=== PATIENT | female | born 1935 | race Caucasian/White ===

== ENCOUNTER → 2017-01-12 | Outpatient (CLI) | payer MEDICARE ==
--- NOTE | 2017-01-13 10:50 | MM ---
Reason for exam: screening (asymptomatic). Last mammogram was performed 1 year and 8 months ago. History: Patient is postmenopausal. Benign excisional biopsy of the right breast, 2008. Benign excisional biopsy of the left breast, 1981. Took estrogen for 6 years beginning at age 50. Took progesterone for 6 years beginning at age 50. Physical Findings: A clinical breast exam by your physician is recommended on an annual basis and results should be correlated with mammographic findings. MG 3D Screening Mammo W/Cad Bilateral CC and MLO view(s) were taken. Prior study comparison: May 15, 2015, bilateral MG 3d screening mammo w/cad. May 02, 2014, bilateral MG screening mammo w CAD. The breast tissue is heterogeneously dense. This may lower the sensitivity of mammography. Finding: There are typically benign vascular, round calcifications in both breasts. There is no discrete abnormality. ASSESSMENT: Benign, BI-RAD 2 RECOMMENDATION: Routine screening mammogram of both breasts in 1 year.
== END | disposition home or self-care (01) ==
LOC: RADMAMWWP 14:29
PROVIDERS: ATTEND Obstetrics & Gynecology
DX: Z12.31 Encounter for screening mammogram for malignant neoplasm of breast (principal)
CPT/HCPCS: 77063; G0202

== ENCOUNTER → 2018-03-27 | Outpatient (CLI) | payer MEDICARE ==
--- NOTE | 2018-03-27 13:59 | MM ---
Reason for exam: screening (asymptomatic). Last mammogram was performed 1 year and 2 months ago. History: Patient is postmenopausal. Benign excisional biopsy of the right breast, 2008. Benign excisional biopsy of the left breast, 1981. Took estrogen for 6 years beginning at age 50. Took progesterone for 6 years beginning at age 50. Physical Findings: A clinical breast exam by your physician is recommended on an annual basis and results should be correlated with mammographic findings. MG 3D Screening Mammo W/Cad Bilateral CC and MLO view(s) were taken. Prior study comparison: January 12, 2017, bilateral MG 3d screening mammo w/cad. May 15, 2015, bilateral MG 3d screening mammo w/cad. The breast tissue is heterogeneously dense. This may lower the sensitivity of mammography. Finding #1: There is a typically benign circumscribed oval mass in the upper outer quadrant of the left breast consistent with benign hematoma. Finding #2: There are typically benign vascular, round calcifications in both breasts. There is no discrete abnormality. ASSESSMENT: Benign, BI-RAD 2 RECOMMENDATION: Routine screening mammogram of both breasts in 1 year.
== END | disposition home or self-care (01) ==
LOC: RADMAMWWP 10:52
PROVIDERS: ATTEND Family Medicine
DX: Z12.31 Encounter for screening mammogram for malignant neoplasm of breast (principal)
CPT/HCPCS: 77063; 77067

== ENCOUNTER → 2019-02-05 | Outpatient (CLI) | payer MEDICARE ==
--- NOTE | 2019-02-05 12:43 | CT ---
EXAMINATION TYPE: CT brain wo con DATE OF EXAM: 02/05/2019 HISTORY: weakness and positional dizziness CT DLP: 1036 mGycm. Automated Exposure Control for Dose Reduction was Utilized. TECHNIQUE: CT scan of the head is performed without contrast. COMPARISON: None. FINDINGS: There is no acute intracranial hemorrhage or midline shift identified. There is diffuse v entricular and sulcal prominence consistent with diffuse age-related cerebral atrophy. There is low- attenuation in the periventricular white matter consistent with chronic small vessel ischemic change. The globes are intact and the visualized sinuses are clear. Mastoid air cells showed no suspiciou s opacification. IMPRESSION: No acute intracranial hemorrhage or midline shift. There is mild to moderate diffuse ag e-related cerebral atrophy and chronic small vessel ischemic change noted.
== END | disposition home or self-care (01) ==
LOC: RADCTMAIN 12:02
PROVIDERS: ATTEND Family Medicine
DX: G31.1 Senile degeneration of brain, not elsewhere classified (principal); I67.82 Cerebral ischemia; M62.81 Muscle weakness (generalized); R42 Dizziness and giddiness
CPT/HCPCS: 70450

== ENCOUNTER → 2019-07-19 | Outpatient (CLI) | payer MEDICARE ==
--- NOTE | 2019-07-23 09:01 | MM ---
Reason for exam: screening (asymptomatic). Last mammogram was performed 1 year and 4 months ago. History: Patient is postmenopausal and history of other cancer. Benign excisional biopsy of the right breast, 2008. Benign excisional biopsy of the left breast, 1981. Took estrogen for 6 years beginning at age 50. Took progesterone for 6 years beginning at age 50. Physical Findings: A clinical breast exam by your physician is recommended on an annual basis and results should be correlated with mammographic findings. MG 3D Screening Mammo W/Cad Bilateral CC and MLO view(s) were taken. Prior study comparison: March 27, 2018, bilateral MG 3d screening mammo w/cad. January 12, 2017, bilateral MG 3d screening mammo w/cad. The breast tissue is heterogeneously dense. This may lower the sensitivity of mammography. Finding: There are typically benign vascular, round, diffuse/scattered calcifications. No significant changes in finding since March 27, 2018 and January 12, 2017. ASSESSMENT: Benign, BI-RAD 2 RECOMMENDATION: Routine screening mammogram of both breasts in 1 year.
== END | disposition home or self-care (01) ==
LOC: RADMAMWWP 10:59
PROVIDERS: ATTEND Family Medicine
DX: Z12.31 Encounter for screening mammogram for malignant neoplasm of breast (principal)
CPT/HCPCS: 77063; 77067

== ENCOUNTER → 2020-07-21 | Outpatient (CLI) | payer MEDICARE ==
--- NOTE | 2020-07-22 12:09 | MM ---
Reason for exam: screening (asymptomatic). Last mammogram was performed 1 year ago. History: Patient is postmenopausal and history of other cancer. Benign excisional biopsy of the right breast, 2008. Benign excisional biopsy of the left breast, 1981. Took estrogen for 6 years beginning at age 50. Took progesterone for 6 years beginning at age 50. Physical Findings: A clinical breast exam by your physician is recommended on an annual basis and results should be correlated with mammographic findings. MG 3D Screening Mammo W/Cad Bilateral CC and MLO view(s) were taken. Prior study comparison: July 19, 2019, bilateral MG 3d screening mammo w/cad. March 27, 2018, bilateral MG 3d screening mammo w/cad. The breast tissue is heterogeneously dense. This may lower the sensitivity of mammography. No significant changes when compared with prior studies. ASSESSMENT: Benign, BI-RAD 2 RECOMMENDATION: Routine screening mammogram of both breasts in 1 year.
== END | disposition home or self-care (01) ==
LOC: RADMAMWWP 10:58
PROVIDERS: ATTEND Family Medicine
DX: Z12.31 Encounter for screening mammogram for malignant neoplasm of breast (principal)
CPT/HCPCS: 77063; 77067

== ENCOUNTER → 2021-07-22 | Outpatient (CLI) | payer MEDICARE ==
--- NOTE | 2021-07-23 10:18 | MM ---
Reason for exam: screening (asymptomatic). Last mammogram was performed 1 year ago. History: Patient is postmenopausal and history of other cancer. Benign excisional biopsy of the right breast, 2008. Benign excisional biopsy of the left breast, 1981. Took estrogen for 6 years beginning at age 50. Took progesterone for 6 years beginning at age 50. Physical Findings: A clinical breast exam by your physician is recommended on an annual basis and results should be correlated with mammographic findings. MG 3D Screening Mammo W/Cad Bilateral CC and MLO view(s) were taken. Prior study comparison: July 21, 2020, bilateral MG 3d screening mammo w/cad. July 19, 2019, bilateral MG 3d screening mammo w/cad. The breast tissue is heterogeneously dense. This may lower the sensitivity of mammography. Finding #1: Stable architectural distortion in the upper outer quadrant, anterior, middle position of the right breast consistent with known excision changes. Finding #2: There are typically benign vascular, round calcifications in both breasts. There is no discrete abnormality. ASSESSMENT: Benign, BI-RAD 2 RECOMMENDATION: Routine screening mammogram of both breasts in 1 year.
== END | disposition home or self-care (01) ==
LOC: RADMAMWWP 12:54
PROVIDERS: ATTEND Family Medicine
DX: Z12.31 Encounter for screening mammogram for malignant neoplasm of breast (principal); Z78.0 Asymptomatic menopausal state
CPT/HCPCS: 77063; 77067

== ENCOUNTER → 2021-09-22 | Outpatient (CLI) | payer MEDICARE ==
--- NOTE | 2021-09-22 15:28 | XR ---
EXAM TYPE: LUMBAR SPINE X RAY SERIES COMPARISON: NONE HISTORY: Pain TECHNIQUE: 4 views are submitted. FINDINGS: Alignment is anatomic. The pedicles are intact. The transverse processes are intact. There is diff use osteopenia. Multilevel hypertrophic degenerative change. There is facet arthropathy L4-5 and L5-S 1. Grade 1 anterolisthesis of L5 on S1. Diffuse osteopenia. Vascular calcifications noted. IMPRESSION: 1. Diffuse osteopenia with multilevel degenerative disc disease. Facet arthropathy lower lumbar spine with grade 1 anterolisthesis of L5 on S1.
== END | disposition home or self-care (01) ==
LOC: RADXRYALE 14:41
PROVIDERS: ATTEND Physician Assistant Medical
DX: M85.88 Other specified disorders of bone density and structure, other site (principal); M51.36 Other intervertebral disc degeneration, lumbar region; M47.816 Spondylosis without myelopathy or radiculopathy, lumbar region; M43.17 Spondylolisthesis, lumbosacral region
CPT/HCPCS: 72110

== ENCOUNTER 2021-09-27 12:48 | Inpatient (IN) | payer MEDICARE ==
[2021-09-27] MEDS ORDERED: MORPHINE SULFATE 4 MG/ML SYRINGE IVP STA (15:09)
[2021-09-27 15:11] LABS: Basophils % (A) 0 %; Eosinophils % (A) 1 %; HGB 12.2 gm/dL (11.4-16.0); Lymphocytes % (A) 16 %; MCV 96.8 fL (80.0-100.0); Monocytes # (A) 0.3 k/uL (0-1.0); Monocytes % (A) 5 %; Neutrophils # (A) 4.8 k/uL (1.3-7.7); Neutrophils % (A) 76 %; Platelet Count 327 k/uL (150-450); RBC 3.83 m/uL (3.80-5.40); RDW 13.6 % (11.5-15.5); WBC 6.3 k/uL (3.8-10.6)
[2021-09-27 15:25] LABS: ALT 14 U/L (4-34); AST 20 U/L (14-36); African American GFR (CKD) >90 (>60 ml/min/1.73 sqM); Albumin 3.5 g/dL (3.5-5.0); Alkaline Phosphatase 142 U/L (38-126); Anion Gap 5 mmol/L; Blood Urea Nitrogen 22 mg/dL (7-17); C Reactive Protein 0.7 mg/dL (<1.0); Calcium 8.4 mg/dL (8.4-10.2); Carbon Dioxide 24 mmol/L (22-30); Chloride 108 mmol/L (98-107); Glucose 108 mg/dL (74-99); Non-African American GFR(CKD) 82 (>60 ml/min/1.73 sqM); Potassium 3.5 mmol/L (3.5-5.1); Sodium 137 mmol/L (137-145); Total Bilirubin 0.4 mg/dL (0.2-1.3); Total Protein 6.1 g/dL (6.3-8.2)
[2021-09-27] MEDS ORDERED: SODIUM CHLORIDE 0.9% 1,000 ML IV ONE (15:33)
--- NOTE | 2021-09-27 15:43 | ED ---
General Adult HPI - General Source: patient, EMS Mode of arrival: EMS Limitations: no limitations <Addie Peres - Last Filed: 09/27/21 16:47> <Jeniffer Bell - Last Filed: 09/28/21 21:54> - General Chief complaint: Back Pain/Injury Stated complaint: back pain Time Seen by Provider: 09/27/21 14:04 - History of Present Illness Initial comments: Patient is an 86-year-old female presenting with chief complaint of back pain 2 weeks. Patient admits to a fall about 2 weeks ago in which she "sat down hard", patient states immediately after the fall there was no back pain only wrist pain. Since then the wrist pain has resolved and her back pain has become increasingly worse. It is a sharp pain located on the right side. No radiation of pain. Patient was seen by her PCP and x-rays were obtained which are a vailable today in the ER, negative for fracture. She was given a steroid, hydrocodone, and a muscle relaxer. Patient states that these medications do not touch the pain that has become increasingly difficult to walk with so much pain. Patient admits to urgency and frequency. Today the patient's fever is 100.1, patient has not noted a fever in the last several days. Patient denies loss of bowel or bladder control. No saddle anesthesia. No bilateral weakness of the lower extremity. No chest pain, shortness of breath, abdominal pain, nausea, vomiting, palpitations, lightheadedness, dizziness, diarrhea, constipation. (Addie Peres) - Related Data Home Medications Medication Instructions Recorded Confirmed Cevimeline HCl [Evoxac] 30 mg PO BID 09/27/21 09/27/21 Cyclobenzaprine [Flexeril] 5 mg PO TID PRN 09/27/21 09/27/21 Desvenlafaxine Succinate [Pristiq 50 mg PO DAILY 09/27/21 09/27/21 ER] HYDROcodone/APAP 5-325MG [[place] 1 tab PO TID PRN 09/27/21 09/27/21 5-325] Levothyroxine Sodium [Synthroid] 75 mcg PO DAILY 09/27/21 09/27/21 Losartan Potassium [Cozaar] 25 mg PO BID 09/27/21 09/27/21 predniSONE See Taper PO DIRECTED 09/27/21 09/27/21 Allergies Allergy/AdvReac Type Severity Reaction Status Date / Time No Known Allergies Allergy Verified 09/27/21 17:45 Review of Systems ROS Other: All systems not noted in ROS Statement are negative. <Addie Peres - Last Filed: 09/27/21 16:47> ROS Other: All systems not noted in ROS Statement are negative. <HernestoakiJeniffer Rima - Last Filed: 09/28/21 21:54> ROS Statement: Those systems with pertinent positive or pertinent negative responses have been documented in the HPI. Past Medical History Past Medical History: Hypertension, Thyroid Disorder History of Any Multi-Drug Resistant Organisms: None Reported Past Surgical History: Adenoidectomy, Tonsillectomy Past Psychological History: No Psychological Hx Reported Smoking Status: Never smoker Past Alcohol Use History: None Reported Past Drug Use History: None Reported <Addie Peres - Last Filed: 09/27/21 16:47> General Exam Limitations: no limitations General appearance: alert, in no apparent distress Head exam: Present: atraumatic, normocephalic, normal inspection Eye exam: Present: normal appearance, PERRL, EOMI. Absent: scleral icterus, conjunctival injection, periorbital swelling Neck exam: Present: normal inspection Respiratory exam: Present: normal lung sounds bilaterally. Absent: respiratory distress, wheezes, rales, rhonchi, stridor Cardiovascular Exam: Present: regular rate, normal rhythm, normal heart sounds. Absent: systolic murmur, diastolic murmur, rubs, gallop, clicks GI/Abdominal exam: Present: soft, normal bowel sounds. Absent: distended, tenderness, guarding, rebound, rigid Extremities exam: Present: normal inspection. Absent: full ROM (Secondary to pain), tenderness, pedal edema Back exam: Present: normal inspection, tenderness. Absent: full ROM (Secondary to pain), paraspinal tenderness, vertebral tenderness Neurological exam: Present: alert, oriented X3, CN II-XII intact Psychiatric exam: Present: normal affect, normal mood Skin exam: Present: warm, dry, intact, normal color. Absent: rash <Addie Peres - Last Filed: 09/27/21 16:47> Course Vital Signs 09/27/21 09/27/21 09/27/21 13:04 16:07 19:52 Temperature 100.1 F H Pulse Rate 88 82 73 Respiratory 16 16 18 Rate Blood Pressure 178/92 168/82 180/89 O2 Sat by Pulse 98 99 97 Oximetry 09/27/21 20:52 Temperature 98.2 F Pulse Rate 71 Respiratory 18 Rate Blood Pressure 183/99 O2 Sat by Pulse 96 Oximetry Medical Decision Making - Lab Data Result diagrams: 09/27/21 14:39 09/27/21 14:39 - Radiology Data Radiology results: report reviewed, image reviewed <Addie Peres - Last Filed: 09/27/21 16:47> - Lab Data Result diagrams: 09/27/21 14:39 09/27/21 14:39 <Jeniffer Bell - Last Filed: 09/28/21 21:54> - Medical Decision Making Presenting with chief complaint of low back pain 2 weeks. About 2-3 weeks ago patient had a fall where she landed in a sitting position. Immediately following the fall she only had pain in the wrist, several days later she began experiencing low back pain. The pain has become so severe that she he has difficulty ambulating very short distances and changing positions. Her PCP pre viously took x-rays we have access to at were negative for any fracture. On presentation today she is mildly febrile at 100.1. On examination there is tenderness with palpation over the sacrum on the right side. 4 mg morphine IVP and 1 L normal saline bolus were given. CT of the lumbar spine with contrast was obtained due to the patient's symptoms of low back pain and elevated temperature to rule out an epidural abscess. CT was positive for nondisplaced sacral fracture. There is a chip fracture of the lateral mass of the sacrum bilaterally at the SI joint. There is also a hairline fracture through the right side of the sacrum at the junction of the vertebral body with the lateral mass. There is osteopenia. There is no lumbar paraspinal mass. I spoke with Dr. Solitario, the orthopedist on-call, who confirmed that if the patient is unable to ambulate at home that she does not require transfer and orthopedics would consult on her case. I spoke with Juan Pablo Mirza who agreed to accept the patient for admission. Spoke with the patient and family, they conveyed verbal understanding and agreed to the plan. I discussed this case with my attending Dr. Bell. (Addie Peres) I was available for consultation in the emergency department. The history and physical exam were done by the midlevel provider. I was consulted for this patients care. I reviewed the case with the midlevel provider and based on their presentation of the patient, I agree with the assessment, medical decision making and plan of care as documented. Chart was dictated using [employer] Chinese dictation software. Attempts were made to correct any dictation errors however some typographical errors may persist. (Jeniffer Bell) - Lab Data Lab Results 09/27/21 09/27/21 09/27/21 Range/Units 14:39 14:39 14:39 WBC 6.3 (3.8-10.6) k/uL RBC 3.83 (3.80-5.40) m/uL Hgb 12.2 (11.4-16.0) gm/dL Hct 37.0 (34.0-46.0) % MCV 96.8 (80.0-100.0) fL MCH 32.0 (25.0-35.0) pg MCHC 33.0 (31.0-37.0) g/dL RDW 13.6 (11.5-15.5) % Plt Count 327 (150-450) k/uL MPV 7.0 Neutrophils % 76 % Lymphocytes % 16 % Monocytes % 5 % Eosinophils % 1 % Basophils % 0 % Neutrophils # 4.8 (1.3-7.7) k/uL Lymphocytes # 1.0 (1.0-4.8) k/uL Monocytes # 0.3 (0-1.0) k/uL Eosinophils # 0.0 (0-0.7) k/uL Basophils # 0.0 (0-0.2) k/uL ESR Cancelled Sodium 137 (137-145) mmol/L Potassium 3.5 (3.5-5.1) mmol/L Chloride 108 H (98-107) mmol/L Carbon Dioxide 24 (22-30) mmol/L Anion Gap 5 mmol/L BUN 22 H (7-17) mg/dL Creatinine 0.61 (0.52-1.04) mg/dL Est GFR (CKD-EPI)AfAm >90 (>60 ml/min/1.73 sqM) Est GFR (CKD-EPI)NonAf 82 (>60 ml/min/1.73 sqM) Glucose 108 H (74-99) mg/dL Plasma Lactic Acid [place] 1.1 (0.7-2.0) mmol/L Calcium 8.4 (8.4-10.2) mg/dL Total Bilirubin 0.4 (0.2-1.3) mg/dL AST 20 (14-36) U/L ALT 14 (4-34) U/L Alkaline Phosphatase 142 H (38-126) U/L C-Reactive Protein 0.7 (<1.0) mg/dL Total Protein 6.1 L (6.3-8.2) g/dL Albumin 3.5 (3.5-5.0) g/dL Vitamin D 25-Hydroxy (30.0-100.0) ng/mL Urine Color Urine Appearance (Clear) Urine pH (5.0-8.0) Ur Specific [place] (1.001-1.035) Urine Protein (Negative) Urine Glucose (UA) (Negative) Urine Ketones (Negative) Urine Blood (Negative) Urine Nitrite (Negative) Urine Bilirubin (Negative) Urine Urobilinogen (<2.0) mg/dL Ur Leukocyte Esterase (Negative) 09/27/21 09/27/21 09/27/21 Range/Units 14:39 15:30 15:45 WBC (3.8-10.6) k/uL RBC (3.80-5.40) m/uL Hgb (11.4-16.0) gm/dL Hct (34.0-46.0) % MCV (80.0-100.0) fL MCH (25.0-35.0) pg MCHC (31.0-37.0) g/dL RDW (11.5-15.5) % Plt Count (150-450) k/uL MPV Neutrophils % % Lymphocytes % % Monocytes % % Eosinophils % % Basophils % % Neutrophils # (1.3-7.7) k/uL Lymphocytes # (1.0-4.8) k/uL Monocytes # (0-1.0) k/uL Eosinophils # (0-0.7) k/uL Basophils # (0-0.2) k/uL ESR 30 H Sodium (137-145) mmol/L Potassium (3.5-5.1) mmol/L Chloride (98-107) mmol/L Carbon Dioxide (22-30) mmol/L Anion Gap mmol/L BUN (7-17) mg/dL Creatinine (0.52-1.04) mg/dL Est GFR (CKD-EPI)AfAm (>60 ml/min/1.73 sqM) Est GFR (CKD-EPI)NonAf (>60 ml/min/1.73 sqM) Glucose (74-99) mg/dL Plasma Lactic Acid [place] (0.7-2.0) mmol/L Calcium (8.4-10.2) mg/dL Total Bilirubin (0.2-1.3) mg/dL AST (14-36) U/L ALT (4-34) U/L Alkaline Phosphatase (38-126) U/L C-Reactive Protein (<1.0) mg/dL Total Protein (6.3-8.2) g/dL Albumin (3.5-5.0) g/dL Vitamin D 25-Hydroxy 45.0 (30.0-100.0) ng/mL Urine Color Light Yellow Urine Appearance Clear (Clear) Urine pH 7.0 (5.0-8.0) Ur Specific [place] 1.010 (1.001-1.035) Urine Protein Negative (Negative) Urine Glucose (UA) Negative (Negative) Urine Ketones Negative (Negative) Urine Blood Negative (Negative) Urine Nitrite Negative (Negative) Urine Bilirubin Negative (Negative) Urine Urobilinogen <2.0 (<2.0) mg/dL Ur Leukocyte Esterase Negative (Negative) - Radiology Data CT of lumbar spine with contrast was positive for nondisplaced sacral fracture. There is a chip fracture of the lateral mass of the sacrum bilaterally at the SI joint. There is also a hairline fracture through the right side of the sacrum at the junction of the vertebral body with the lateral mass. There is osteopenia. There is no lumbar paraspinal mass. (Addie Peres) Disposition Decision to Admit Reason: Admit from EC Decision Date: 09/27/21 Decision Time: 17:09 <Addie Peres - Last Filed: 09/27/21 16:47> <Jeniffer Bell - Last Filed: 09/28/21 21:54> Clinical Impression: Fracture of sacrum Disposition: ADMITTED IP TO THIS [facility] Condition: Stable
[2021-09-27 15:54] LABS: Appearance,Urine Clear (Clear); Bilirubin,Urine Negative (Negative); Blood,Urine Negative (Negative); Color,Urine Light Yellow; Glucose,Urine (UA) Negative (Negative); Ketones,Urine Negative (Negative); Leukocyte Esterase,Urine Negative (Negative); Nitrite,Urine Negative (Negative); Protein,Urine Negative (Negative); Urobilinogen,Urine <2.0 mg/dL (<2.0)
--- NOTE | 2021-09-27 16:09 | CT ---
EXAMINATION TYPE: CT lumbar spine w con DATE OF EXAM: 09/27/2021 COMPARISON: None HISTORY: Right sided sciatic pain after fall xcouple weeks ago. CT DLP: 533.8 mGycm Automated exposure control for dose reduction was used. CONTRAST: Performed with IV Contrast, patient injected with 100ml mL of Isovue 300. Lumbar vertebrae have normal alignment. Posterior elements are intact. Disc spaces are fairly normal. There is 10% anterior wedging of L1 vertebral body. The sacroiliac joints are intact. There is nondisplaced chip fracture of the lateral mass of the sacrum bilaterally at the sacroiliac j oint. There is also a hairline fracture through the right side of the sacrum at the junction of the v ertebral body with the lateral mass. There is osteopenia. There is no lumbar paraspinal mass. IMPRESSION: Nondisplaced sacral fracture. Slight anterior wedging of L1 vertebral body with no definite acute fra cture line seen.
[2021-09-27] MEDS ORDERED: NALOXONE 0.4 MG/ML 1 ML VIAL IV PRN (16:51)
[2021-09-27] MEDS: MORPHINE SULFATE 4 MG/ML SYRINGE IV PRN (21:20)
[2021-09-27] MEDS: LOSARTAN 25 MG TAB PO SCH (22:46)
[2021-09-28] MEDS: LEVOTHYROXINE 75 MCG TAB PO SCH (05:19)
[2021-09-28] MEDS: DESVENLAFAXINE SUCCINATE 50 MG TAB.ER.24H PO SCH (08:45)
[2021-09-28] MEDS: LOSARTAN 25 MG TAB PO SCH ×2 (08:45→21:15)
[2021-09-28] MEDS: CEVIMELINE 30 MG CAP PO SCH ×2 (08:45→21:15)
[2021-09-28] MEDS ORDERED: CYCLOBENZAPRINE 5 MG TAB PO PRN (09:00)
[2021-09-28] MEDS ORDERED: FAMOTIDINE 20 MG/2 ML VIAL IV SCH (09:00)
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
[2021-09-28] MEDS: CALCIUM CARB-VIT D 500 MG-5 MCG TAB PO SCH ×2 (09:50→17:28)
[2021-09-28] MEDS: MORPHINE SULFATE 4 MG/ML SYRINGE IV PRN (09:50)
[2021-09-28] MEDS: amLODIPine 5 MG TAB PO SCH (09:50)
--- NOTE | 2021-09-28 16:22 | P.CNOR ---
History of Present Illness - [facility] Consult date: 09/28/21 Consult reason: fracture History of present illness: Patient is pleasant 86 year old female seen at bedside in consultation for low back pain and sacral fractures. She states she fell down hard on her bottom about 2 weeks ago. Pain has progressed in the low back/sacrum area where she eventually presented to ED yesterday. She denies radicular complaints including numbness or weakness down the lower extremities . She has no loss of bowel or bladder control. No saddle anesthesia. No other complaints. Review of Systems All systems: negative Constitutional: Denies chills, Denies fever Eyes: denies blurred vision, denies pain Ears, nose, mouth and throat: Denies headache, Denies sore throat Cardiovascular: Denies chest pain, Denies shortness of breath Respiratory: Denies cough Gastrointestinal: Denies abdominal pain, Denies diarrhea, Denies nausea, Denies vomiting Genitourinary: Denies dysuria, Denies hematuria Musculoskeletal: Denies myalgias Integumentary: Denies pruritus, Denies rash Neurological: Denies numbness, Denies weakness Psychiatric: Denies anxiety, Denies depression Endocrine: Denies fatigue, Denies weight change Past Medical History Past Medical History: Hypertension, Thyroid Disorder History of Any Multi-Drug Resistant Organisms: None Reported Past Surgical History: Adenoidectomy, Tonsillectomy Past Anesthesia/Blood Transfusion Reactions: No Reported Reaction Past Psychological History: No Psychological Hx Reported Smoking Status: Never smoker Past Alcohol Use History: None Reported Past Drug Use History: None Reported Medications and Allergies Home Medications Medication Instructions Recorded Confirmed Type Cevimeline HCl [Evoxac] 30 mg PO BID 09/27/21 09/27/21 History Cyclobenzaprine [Flexeril] 5 mg PO TID PRN 09/27/21 09/27/21 History Desvenlafaxine Succinate [Pristiq 50 mg PO DAILY 09/27/21 09/27/21 History ER] HYDROcodone/APAP 5-325MG [[place] 1 tab PO TID PRN 09/27/21 09/27/21 History 5-325] Levothyroxine Sodium [Synthroid] 75 mcg PO DAILY 09/27/21 09/27/21 History Losartan Potassium [Cozaar] 25 mg PO BID 09/27/21 09/27/21 History predniSONE See Taper PO DIRECTED 09/27/21 09/27/21 History Allergies Allergy/AdvReac Type Severity Reaction Status Date / Time No Known Allergies Allergy Verified 09/27/21 17:45 Physical Examination Osteopathic Statement: *. No significant issues noted on an osteopathic structural exam other than those noted in the History and Physical/Consult. Exam of the back reveals no dimples, patches, lacerations, or abrasions. Non- tender to palpation over the midline. There is some paravertebral spasm. Motion of the lumbar spine reveals flexion is to 60 degrees and extension is to 10 degrees. There is some pain on internal/external rotation of bilateral hips. Right Lower extremity: Motor strength of the lower extremity is 5/5 including dorsiflexion, plantar flexion, extensor hallucis longus, hip flexion, knee extension abduction and adduction. Sensation L2-S1 intact Left Lower extremity: Motor strength of the lower extremity is 5/5 including dorsiflexion, plantar flexion, extensor hallucis longus, hip flexion, knee extension abduction and adduction. Sensation L2-S1 intact No clonus, normal Babinski, no hyperreflexia Results non displaced fractures of lateral masses of sacrum. - Labs Labs: Abnormal Lab Results - Last 24 Hours (Table) 09/27/21 09/27/21 Range/Units 14:39 15:45 ESR 30 H (0-20) mm/hr Chloride 108 H (98-107) mmol/L BUN 22 H (7-17) mg/dL Glucose 108 H (74-99) mg/dL Alkaline Phosphatase 142 H (38-126) U/L Total Protein 6.1 L (6.3-8.2) g/dL H & H 09/27/21 Range/Units 14:39 Hgb 12.2 (11.4-16.0) gm/dL Hct 37.0 (34.0-46.0) % Result Diagrams: 09/27/21 14:39 09/27/21 14:39 - Diagnostic results CT Scan - lumbar: report reviewed, image reviewed Assessment and Plan (1) Fracture of sacrum Narrative/Plan: No immediate surgical intervention planned. Sacrum fractures are non displaced and there is no neurological compromise. Recommend LSO when out of bed, PT, pain management. WBAT with walker. She may follow up in office with Dr. White Current Visit: Yes Status: Acute Priority: Medium Code(s): S32.10XA - UNSP FRACTURE OF SACRUM, INIT ENCNTR FOR CLOSED FRACTURE SNOMED Code(s): 344915048 Plan: Pt seen and examined. Fred with above. Pt has nondisplaced fragility fracture of the sacrum without any neuro symptoms. WBAT with LSO with pain control. Follow up with Dr. White once discharged. Time with Patient: Less than 30
[2021-09-28] MEDS: HYDROcodone/APAP 7.5-325MG 1 EACH TAB PO PRN (17:28)
[2021-09-28] MEDS: HEPARIN SODIUM,PORCINE/PF 5,000 UNIT/0.5 ML SYRINGE SQ SCH (21:15)
[2021-09-28] MEDS: FAMOTIDINE 20 MG TAB PO SCH (21:15)
[2021-09-29] MEDS: LEVOTHYROXINE 75 MCG TAB PO SCH (05:29)
[2021-09-29] MEDS: LOSARTAN 25 MG TAB PO SCH ×2 (08:03→21:14)
[2021-09-29] MEDS: FAMOTIDINE 20 MG TAB PO SCH ×2 (08:03→21:14)
[2021-09-29] MEDS: HYDROcodone/APAP 7.5-325MG 1 EACH TAB PO PRN ×2 (08:03→21:11)
[2021-09-29] MEDS: CALCIUM CARB-VIT D 500 MG-5 MCG TAB PO SCH ×2 (08:03→17:10)
[2021-09-29] MEDS: DESVENLAFAXINE SUCCINATE 50 MG TAB.ER.24H PO SCH (08:03)
[2021-09-29] MEDS: amLODIPine 5 MG TAB PO SCH (08:03)
[2021-09-29] MEDS: HEPARIN SODIUM,PORCINE/PF 5,000 UNIT/0.5 ML SYRINGE SQ SCH ×2 (08:04→21:13)
[2021-09-29] MEDS: CEVIMELINE 30 MG CAP PO SCH ×2 (09:17→21:14)
--- NOTE | 2021-09-29 11:29 | P.PN ---
Subjective Progress Note Date: 09/29/21 Principal diagnosis: Sacral fracture Patient is seen at bedside this morning. We are following her for nondisplaced sacral fractures. She is resting comfortably in bed. She denies radicular symptoms. She denies any new complaints. She denies numbness, tingling or calf pain. Review of systems is negative for fever, chills, chest pain, shortness of breath or other Objective - Vital Signs Vital signs: Vital Signs Temp 97.8 F 09/29/21 07:11 Pulse 75 09/29/21 07:11 Resp 18 09/29/21 07:11 BP 158/79 09/29/21 07:11 Pulse Ox 96 09/29/21 07:11 Intake & Output 09/28/21 09/29/21 09/29/21 18:59 06:59 18:59 Intake Total 590 360 Output Total 925 350 20 Balance -335 10 -20 Intake: IV 10 Invasive Line 1 10 Oral 580 360 Output: Urine 925 350 20 Uretheral (Blevins) 775 Other: Voiding Method Indwelling Catheter External Catheter Toilet External Catheter # Voids 1 - Exam Inspection reveals a benign lumbarsacral spine. There are no wounds or erythema. Neurovascular status is intact throughout the lower extremities with L2-S1 motor and sensation fully intact. Calves are soft and nontender. 2+ dorsalis pedis pulse and less than 2 second cap refill is present. - Constitutional General appearance: Present: no acute distress - Labs CBC & Chem 7: 09/27/21 14:39 09/27/21 14:39 Assessment and Plan (1) Fracture of sacrum Narrative/Plan: No immediate surgical intervention planned. Continue conservative measures. Recommend LSO when out of bed, PT, pain management. WBAT with walker. She may follow up in office with Dr. White. Will sign off for now. Thank you Current Visit: Yes Status: Acute Priority: Medium Code(s): S32.10XA - UNSP FRACTURE OF SACRUM, INIT ENCNTR FOR CLOSED FRACTURE SNOMED Code(s): 961689312 Time with Patient: Less than 30
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
[2021-09-30] MEDS: LEVOTHYROXINE 75 MCG TAB PO SCH (05:58)
[2021-09-30] MEDS: CALCIUM CARB-VIT D 500 MG-5 MCG TAB PO SCH ×2 (08:34→17:09)
[2021-09-30] MEDS: LOSARTAN 25 MG TAB PO SCH ×2 (08:34→20:31)
[2021-09-30] MEDS: amLODIPine 5 MG TAB PO SCH (08:34)
[2021-09-30] MEDS: HEPARIN SODIUM,PORCINE/PF 5,000 UNIT/0.5 ML SYRINGE SQ SCH ×2 (08:34→20:32)
[2021-09-30] MEDS: FAMOTIDINE 20 MG TAB PO SCH ×2 (08:34→20:31)
[2021-09-30] MEDS: DESVENLAFAXINE SUCCINATE 50 MG TAB.ER.24H PO SCH (08:35)
[2021-09-30] MEDS: CEVIMELINE 30 MG CAP PO SCH ×2 (08:35→20:31)
--- NOTE | 2021-09-30 10:04 | P.CONS ---
History of Present Illness - Chief Complaint Walking difficulty - History of Present Illness I had the opportunity to see patient for inpatient rehab consultation with regard to walking difficulty. She was admitted to Dr. Self service September 20 history of fall at home and tail pain. Lumbar CT demonstrated sacral fracture and slight anterior wedging L1. Seen by orthopedics for same. His started therapy. PT reports minimal assist for bed mobility, transfer, gait 30 feet with roller walker. OT reports minimal assist for upper dressing, maximal assistance for lower dressing, moderate assistance for bathing and toileting and minimal assistance functional debility/transfer. Patient currently using "Peer- wick" for bladder drainage she really likes. Previous functional history as elicited from patient: 86-year-old right-handed white female who is lives and 2 floor home with . Both are retired. Patient independent with cooking and laundry. Neither drive. There is a brother and 3 daughters who do the driving. Patient otherwise independent with standing shower and gait without device. PCP Dr. Hill. Denies tobacco or alcohol. Review of Systems Review of systems: ENT: Denies sneezes or discharge. Eyes: Denies discharge or photophobia. Cardiac: Denies chest pain or palpitation. Pulmonary: Denies cough or shortness of breath. Breast: Denies discharge or lumps. Gastrointestinal: Denies nausea, emesis, constipation, diarrhea. Genitourinary: Denies discharge or frequency. Musculoskeletal: Sacral/tail pain. Neurologic: Denies motor or sensory change. Endocrine: Denies shakes or sweats. Oncology: Denies cancers. Dermatologic: Denies rash, itching, pruritus. ALLERGY/immunology: Denies sneezes, rashes. Past Medical History Past Medical History: Hypertension, Thyroid Disorder History of Any Multi-Drug Resistant Organisms: None Reported Past Surgical History: Adenoidectomy, Tonsillectomy Past Anesthesia/Blood Transfusion Reactions: No Reported Reaction Past Psychological History: No Psychological Hx Reported Smoking Status: Never smoker Past Alcohol Use History: None Reported Past Drug Use History: None Reported Medications and Allergies Home Medications Medication Instructions Recorded Confirmed Type Cevimeline HCl [Evoxac] 30 mg PO BID 09/27/21 09/27/21 History Cyclobenzaprine [Flexeril] 5 mg PO TID PRN 09/27/21 09/27/21 History Desvenlafaxine Succinate [Pristiq 50 mg PO DAILY 09/27/21 09/27/21 History ER] HYDROcodone/APAP 5-325MG [[place] 1 tab PO TID PRN 09/27/21 09/27/21 History 5-325] Levothyroxine Sodium [Synthroid] 75 mcg PO DAILY 09/27/21 09/27/21 History Losartan Potassium [Cozaar] 25 mg PO BID 09/27/21 09/27/21 History predniSONE See Taper PO DIRECTED 09/27/21 09/27/21 History Allergies Allergy/AdvReac Type Severity Reaction Status Date / Time No Known Allergies Allergy Verified 09/27/21 17:45 Physical Exam Vitals: Vital Signs Temp Pulse Resp BP Pulse Ox 09/30/21 06:20 97.5 F L 77 16 167/89 99 09/30/21 02: 98.4 F 79 16 144/73 95 09/29/21 19:42 97.6 F 85 16 133/77 99 09/29/21 19:33 85 16 09/29/21 13:09 97.4 F L 75 18 162/82 99 Intake and Output 09/29/21 09/30/21 09/30/21 22:59 06:59 14:59 Intake Total 118 118 Output Total 400 400 Balance -282 -282 Intake: Oral 118 118 Output: Urine 400 400 Other: Voiding Method Toilet External Catheter # Voids 100 Skin: Atrophic, intact. General: Thin build and comfortable appearance. Head: Normocephalic, atraumatic. Eyes: Symmetric. Pupils equal round. Ears: Symmetric. Hearing within normal limits. Mouth: Clear. Neck: Supple. Carotid without bruit. Cardiac: Regular rate and rhythm. Lungs: Clear anteriorly and posteriorly. Abdomen: Soft active nontender. Extremities: Normal tone. Neurological: Mental status: Alert, cooperative, pleasant. Cranial nerves: Symmetric facial tone and trapezius. Motor: Active movement all 4 limbs but legs are at best antigravity due to giveaway weakness and pain produced in tail. Sensation: Intact throughout. DTRs: Symmetric and equal throughout. Mobility: Patient reports sacral pain with any standing activity. Results CBC & Chem 7: 09/27/21 14:39 09/27/21 14:39 Assessment and Plan (1) Fracture of sacrum Current Visit: Yes Status: Acute Priority: Medium Code(s): S32.10XA - UNSP FRACTURE OF SACRUM, INIT ENCNTR FOR CLOSED FRACTURE SNOMED Code(s): 490048652 Plan: Comments and plan: At this time safety concerns are noted. Patient demonstrated ability tolerate and benefit from therapies. Current sacral fracture appears to prevent patient from safely ambulating and for this reason patient will be unsafe for return to home at this time. Because she is benefiting from therapies, would except for inpatient rehab pending insurance rules and regulations. This was discussed with patient.
[2021-09-30] MEDS ORDERED: amLODIPine 5 MG TAB PO STA (11:04)
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
[2021-09-30] MEDS: HYDROcodone/APAP 7.5-325MG 1 EACH TAB PO PRN (20:31)
[2021-10-01] MEDS: LEVOTHYROXINE 75 MCG TAB PO SCH (05:35)
[2021-10-01] MEDS ORDERED: amLODIPine 10 MG TAB PO SCH (09:00)
[2021-10-01] MEDS: HEPARIN SODIUM,PORCINE/PF 5,000 UNIT/0.5 ML SYRINGE SQ SCH (10:05)
[2021-10-01] MEDS: ACETAMINOPHEN TAB 325 MG TAB PO PRN ×2 (10:06→15:58)
[2021-10-01] MEDS: DESVENLAFAXINE SUCCINATE 50 MG TAB.ER.24H PO SCH (10:07)
[2021-10-01] MEDS: CEVIMELINE 30 MG CAP PO SCH (10:07)
[2021-10-01] MEDS: CALCIUM CARB-VIT D 500 MG-5 MCG TAB PO SCH (10:07)
[2021-10-01] MEDS: LOSARTAN 25 MG TAB PO SCH (10:08)
[2021-10-01] MEDS: FAMOTIDINE 20 MG TAB PO SCH (10:08)
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
[2021-10-01 15:13] VITALS: BP 124/68; PULSE 85; RESP 16; TEMP 98.2
== END 2021-10-01 16:08 | DRG 552 ==
LOC: EC 12:48 → 6NMEDSUR 17:01 → OBSVTOIN 09-30 10:38
PROVIDERS: ADMIT Hospitalist; ATTEND Hospitalist
DX: S32.10XA Unspecified fracture of sacrum, initial encounter for closed fracture (principal); E03.9 Hypothyroidism, unspecified; I10 Essential (primary) hypertension; M85.88 Other specified disorders of bone density and structure, other site; R26.2 Difficulty in walking, not elsewhere classified; I16.0 Hypertensive urgency; Z79.890 Hormone replacement therapy; Z79.899 Other long term (current) drug therapy; W18.30XA Fall on same level, unspecified, initial encounter; M81.0 Age-related osteoporosis without current pathological fracture
CPT/HCPCS: 36415; 72132; 80053; 81003; 82306; 83605; 85025; 85652; 86140; 96361; 96374; 99285

== ENCOUNTER → 2022-03-12 | Outpatient (CLI) | payer MEDICARE ==
--- NOTE | 2022-03-12 14:48 | XR ---
EXAMINATION TYPE: XR wrist complete LT DATE OF EXAM: 03/12/2022 COMPARISON: NONE HISTORY: Pain TECHNIQUE: Four views submitted. FINDINGS: The osseous structures are intact. Diffuse osteopenia. There is narrowing of the radiocarpal joint. M arked narrowing of first carpometacarpal joint compatible with osteoarthritis. There is no acute frac ture or dislocation. A mixed attenuation within the lunate bone. IMPRESSION: 1. No definite acute fracture or dislocation if symptoms persist, follow-up study in 7 to 10 days wo uld be suggested 2. Arthropathy with diffuse osteopenia. 3. There is mixed attenuation within the lunate bone. Postarthritic. 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 Recommend follow-up MRI.
== END | disposition home or self-care (01) ==
LOC: RADXRYALE 13:50
PROVIDERS: ATTEND Physician Assistant Medical
DX: M19.031 Primary osteoarthritis, right wrist (principal); M87.9 Osteonecrosis, unspecified; M85.841 Other specified disorders of bone density and structure, right hand

== ENCOUNTER → 2023-05-17 | Outpatient (CLI) | payer MEDICARE ==
--- NOTE | 2023-05-18 08:16 | XR ---
EXAMINATION TYPE: XR knee complete LT DATE OF EXAM: 05/17/2023 COMPARISON: NONE HISTORY: Pain TECHNIQUE: Three views are submitted. FINDINGS: Joint spaces are preserved. Osseous structures are intact. No acute fracture seen. Diffuse osteope chidi. IMPRESSION: 1. No acute fracture or dislocation.
== END | disposition home or self-care (01) ==
LOC: RADXRYALE 16:33
PROVIDERS: ATTEND Physician Assistant Medical
DX: M85.862 Other specified disorders of bone density and structure, left lower leg (principal); M25.562 Pain in left knee

== ENCOUNTER 2023-08-22 18:56 | Inpatient (IN) | payer MEDICARE ==
--- NOTE | 2023-08-22 19:29 | ED ---
General Adult HPI - General Source: patient Mode of arrival: ambulatory Limitations: no limitations <Addie Peres - Last Filed: 08/22/23 19:25> - General Source: patient, RN notes reviewed, old records reviewed Mode of arrival: ambulatory Limitations: no limitations <Anibal Puentes - Last Filed: 08/22/23 21:36> - General Chief complaint: Recheck/Abnormal Lab/Rx Stated complaint: Abd Pain-sent from CT Time Seen by Provider: 08/22/23 19:25 - History of Present Illness Initial comments: 88-year-old female presenting with chief complaint of abdominal pain. Patient has had abdominal pain and nausea since Tuesday. She was sent for an outpatient CT today and was told by her PCP to report to the ER. CT showed small bowel obstruction due to mesenteric abscess. (Addie Peres) Patient is a pleasant 88-year-old female present to the emergency department with abdominal discomfort. Patient did have outpatient CT scan and was advised to come to emergency department. Patient has some anorexia. Patient has mild nausea. No vomiting. No constipation or diarrhea. Patient has had normal bowel movements except for did not have 1 today. No fevers. No history of similar symptoms previously. (Anibal Puentes) - Related Data Home Medications Medication Instructions Recorded Confirmed Cevimeline HCl [Evoxac] 30 mg PO BID 09/27/21 09/27/21 Cyclobenzaprine [Flexeril] 5 mg PO TID PRN 09/27/21 09/27/21 Desvenlafaxine Succinate [Pristiq 50 mg PO DAILY 09/27/21 09/27/21 ER] HYDROcodone/APAP 5-325MG [[place] 1 tab PO TID PRN 09/27/21 09/27/21 5-325] Levothyroxine Sodium [Synthroid] 75 mcg PO DAILY 09/27/21 09/27/21 Losartan Potassium [Cozaar] 25 mg PO BID 09/27/21 09/27/21 Previous Rx's Medication Instructions Recorded Acetaminophen Tab [Tylenol] 650 mg PO Q6HR PRN tab 10/01/21 Calcium Carb-Vit D 500Mg-5Mcg 1 each PO BID-W/MEALS tab 10/01/21 [Oscal 500+D 5 Mcg (200 Iu)] Docusate [Colace] 100 mg PO BID #10 capsule 10/01/21 Famotidine [Pepcid] 20 mg PO BID tab 10/01/21 HYDROcodone/APAP 7.5-325MG [[place] 1 each PO Q4H PRN #10 tab 10/01/21 7.5-325] Heparin Sodium,Porcine (1 ml) 5,000 unit SQ Q12HR #10 each 10/01/21 [Heparin Sodium] amLODIPine [Norvasc] 10 mg PO DAILY #0 tab 10/01/21 Allergies Allergy/AdvReac Type Severity Reaction Status Date / Time No Known Allergies Allergy Verified 09/27/21 17:45 Review of Systems ROS Other: All systems not noted in ROS Statement are negative. <Addie Peres - Last Filed: 08/22/23 19:25> ROS Other: All systems not noted in ROS Statement are negative. Constitutional: Denies: fever Eyes: Denies: eye pain ENT: Denies: ear pain Gastrointestinal: Reports: as per HPI, abdominal pain, nausea. Denies: vomiting, diarrhea, constipation Musculoskeletal: Denies: back pain <Anibal Puentes - Last Filed: 08/22/23 21:36> ROS Statement: Those systems with pertinent positive or pertinent negative responses have been documented in the HPI. Past Medical History Past Medical History: Hypertension, Thyroid Disorder History of Any Multi-Drug Resistant Organisms: None Reported Past Surgical History: Adenoidectomy, Tonsillectomy Past Anesthesia/Blood Transfusion Reactions: No Reported Reaction Past Psychological History: No Psychological Hx Reported Smoking Status: Never smoker Past Alcohol Use History: None Reported Past Drug Use History: None Reported <Addie Peres - Last Filed: 08/22/23 19:25> General Exam Limitations: no limitations <Addie Peres - Last Filed: 08/22/23 19:25> Limitations: no limitations General appearance: alert, in no apparent distress Head exam: Present: normocephalic Eye exam: Present: normal appearance Neck exam: Present: normal inspection Respiratory exam: Present: normal lung sounds bilaterally Cardiovascular Exam: Present: regular rate, normal rhythm GI/Abdominal exam: Present: soft, tenderness (Mild tenderness mid abdomen), normal bowel sounds. Absent: distended, guarding, rebound, rigid, pulsatile mass Extremities exam: Present: normal inspection Neurological exam: Present: alert Psychiatric exam: Present: normal affect, normal mood Skin exam: Present: normal color <Anibal Puentes - Last Filed: 08/22/23 21:36> - General Exam Comments Initial Comments: Visual Physical Exam Vital signs reviewed General: Well-appearing, nontoxic, no acute distress. Head: Normocephalic, atraumatic Eyes: PERRLA, EOMI ENT: Airway patent Chest: Nonlabored breathing Skin: No visual rash, normal skin tone Neuro: Alert and oriented 3 Musculoskeletal: No gross abnormalities (Addie Peres) Course Vital Signs 08/22/23 18:58 Temperature 98.4 F Pulse Rate 91 Respiratory 18 Rate Blood Pressure 129/69 O2 Sat by Pulse 97 Oximetry Medical Decision Making <Addie Peres - Last Filed: 08/22/23 19:25> - Lab Data Result diagrams: 08/22/23 19:27 08/22/23 19:27 <Anibal Puentes - Last Filed: 08/22/23 21:36> - Medical Decision Making I performed the quick note portion of this visit, electronically signed Addie Peres PA-C (Addie Peres) Was pt. sent in by a medical professional or institution ([facility], [employer], urgent care, hospital, or senior living...) When possible be specific @ -Patient was sent from radiology department Did you speak to anyone other than the patient for history (EMS, parent, family, police, friend...)? What history was obtained from this source @ -Daughter is present and helps provide history including patient's symptoms Did you review nursing and triage notes (agree or disagree)? Why? @ -I reviewed and agree with nursing and triage notes Were old charts reviewed (outside hosp., previous admission, EMS record, old EKG, old radiological studies, urgent care reports/EKG's, senior living records)? Report findings @ -CT scan done earlier today reviewed Differential Diagnosis (chest pain, altered mental status, abdominal pain women, abdominal pain men, vaginal bleeding, weakness, fever, dyspnea, syncope, headache, dizziness, GI bleed, back pain, seizure, CVA, palpatations, mental health, musculoskeletal)? @ -Differential Abdominal Pain Women: Appendicitis, Cholecystitis, diverticulosis, ischemic bowel, pancreatitis, h epatitis, UTI, gastroenteritis, AAA, incarcerated hernia, bowel obstruction, constipation, inflammatory bowel, hepatitis, peptic ulcer disease, splenic infarction, perforated viscus, vulvitis, ovarian torsion, PID, kidney stone, placenta abruption, this is not meant to be an all-inclusive list EKG interpreted by me (3pts min.). @ -As above X-rays interpreted by me (1pt min.). @ -None done CT interpreted by me (1pt min.). @ -None done U/S interpreted by me (1pt. min.). @ -None done What testing was considered but not performed or refused? (CT, X-rays, U/S, labs)? Why? @ -None What meds were considered but not given or refused? Why? @ -None Did you discuss the management of the patient with other professionals (professionals i.e. , PA, [employer], lab, RT, psych nurse, social welfare administrator, print line operator, teacher, money position officer, protective services case worker)? Give summary @ -Case discussed with Dr. Ramirez Was smoking cessation discussed for >3mins.? @ -No Was critical care preformed (if so, how long)? @ -No Were there social determinants of health that impacted care today? How? (Homelessness, low income, unemployed, alcoholism, drug addiction, transportation, low edu. Level, literacy, decrease access to med. care, residential, rehab)? @ -No Was there de-escalation of care discussed even if they declined (Discuss DNR or withdrawal of care, Hospice)? DNR status @ -No What co-morbidities impacted this encounter? (DM, HTN, Smoking, COPD, CAD, Cancer, CVA, ARF, Chemo, Hep., AIDS, mental health diagnosis, sleep apnea, morbid obesity)? @ -None Was patient admitted / discharged? Hospital course, mention meds given and route, prescriptions, significant lab abnormalities, going to OR and other pertinent info. @ -Patient and family are updated on results and plan. Patient will be admitted. Admission orders written. Blood culture, lactic acid and IV antibiotics have all been ordered. Undiagnosed new problem with uncertain prognosis? @ -No Drug Therapy requiring intensive monitoring for toxicity (Heparin, Nitro, Insulin, Cardizem)? @ -No Were any procedures done? @ -No Diagnosis/symptom? @ -Abdominal mesenteric abscess, partial bowel obstruction Acute, or Chronic, or Acute on Chronic? @ -Acute, acute Uncomplicated (without systemic symptoms) or Complicated (systemic symptoms)? @ -Default Side effects of treatment? @ -No Exacerbation, Progression, or Severe Exacerbation? @ -No Poses a threat to life or bodily function? How? (Chest pain, USA, NC, pneumonia, PE, COPD, DKA, ARF, appy, cholecystitis, CVA, Diverticulitis, Homicidal, Suicidal, threat to staff... and all critical care pts) @ -Threat to bowel function (Anibal Puentes) - Lab Data Lab Results 08/22/23 08/22/23 08/22/23 Range/Units 19:24 19:27 19: WBC 11.6 H (3.8-10.6) k/uL RBC 3.61 L (3.80-5.40) m/uL Hgb 11.6 (11.4-16.0) gm/dL Hct 34.8 (34.0-46.0) % MCV 96.4 (80.0-100.0) fL MCH 32.3 (25.0-35.0) pg MCHC 33.5 (31.0-37.0) g/dL RDW 13.1 (11.5-15.5) % Plt Count 196 (150-450) k/uL MPV 7.2 Neutrophils % 87 % Lymphocytes % 6 % Monocytes % 4 % Eosinophils % 1 % Basophils % 0 % Neutrophils # 10.2 H (1.3-7.7) k/uL Lymphocytes # 0.7 L (1.0-4.8) k/uL Monocytes # 0.5 (0-1.0) k/uL Eosinophils # 0.1 (0-0.7) k/uL Basophils # 0.0 (0-0.2) k/uL Sodium 127 L (137-145) mmol/L Potassium 3.8 (3.5-5.1) mmol/L Chloride 93 L (98-107) mmol/L Carbon Dioxide 22 (22-30) mmol/L Anion Gap 12 mmol/L BUN 24 H (7-17) mg/dL Creatinine 0.75 (0.52-1.04) mg/dL Est GFR (CKD-EPI)AfAm 82 (>60 ml/min/1.73 sqM) Est GFR (CKD-EPI)NonAf 72 (>60 ml/min/1.73 sqM) Glucose 118 H (74-99) mg/dL Plasma Lactic Acid [place] (0.7-2.0) mmol/L Calcium 9.3 (8.4-10.2) mg/dL Total Bilirubin 0.8 (0.2-1.3) mg/dL AST 39 H (14-36) U/L ALT 25 (4-34) U/L Alkaline Phosphatase 102 (38-126) U/L Total Protein 6.9 (6.3-8.2) g/dL Albumin 4.1 (3.5-5.0) g/dL Amylase 52 (30-110) U/L Lipase 108 (23-300) U/L Urine Color Colorless Urine Appearance Clear (Clear) Urine pH 6.0 (5.0-8.0) Ur Specific [place] 1.037 H (1.001-1.035) Urine Protein 1+ H (Negative) Urine Glucose (UA) Negative (Negative) Urine Ketones Negative (Negative) Urine Blood Small H (Negative) Urine Nitrite Negative (Negative) Urine Bilirubin Negative (Negative) Urine Urobilinogen <2.0 (<2.0) mg/dL Ur Leukocyte Esterase Negative (Negative) Urine RBC 3 (0-5) /hpf Urine WBC 4 (0-5) /hpf Ur Squamous Epith Cells 2 (0-4) /hpf Hyaline Casts 1 (0-2) /lpf 08/22/23 Range/Units 19:27 WBC (3.8-10.6) k/uL RBC (3.80-5.40) m/uL Hgb (11.4-16.0) gm/dL Hct (34.0-46.0) % MCV (80.0-100.0) fL MCH (25.0-35.0) pg MCHC (31.0-37.0) g/dL RDW (11.5-15.5) % Plt Count (150-450) k/uL MPV Neutrophils % % Lymphocytes % % Monocytes % % Eosinophils % % Basophils % % Neutrophils # (1.3-7.7) k/uL Lymphocytes # (1.0-4.8) k/uL Monocytes # (0-1.0) k/uL Eosinophils # (0-0.7) k/uL Basophils # (0-0.2) k/uL Sodium (137-145) mmol/L Potassium (3.5-5.1) mmol/L Chloride (98-107) mmol/L Carbon Dioxide (22-30) mmol/L Anion Gap mmol/L BUN (7-17) mg/dL Creatinine (0.52-1.04) mg/dL Est GFR (CKD-EPI)AfAm (>60 ml/min/1.73 sqM) Est GFR (CKD-EPI)NonAf (>60 ml/min/1.73 sqM) Glucose (74-99) mg/dL Plasma Lactic Acid [place] 1.4 (0.7-2.0) mmol/L Calcium (8.4-10.2) mg/dL Total Bilirubin (0.2-1.3) mg/dL AST (14-36) U/L ALT (4-34) U/L Alkaline Phosphatase (38-126) U/L Total Protein (6.3-8.2) g/dL Albumin (3.5-5.0) g/dL Amylase (30-110) U/L Lipase (23-300) U/L Urine Color Urine Appearance (Clear) Urine pH (5.0-8.0) Ur Specific [place] (1.001-1.035) Urine Protein (Negative) Urine Glucose (UA) (Negative) Urine Ketones (Negative) Urine Blood (Negative) Urine Nitrite (Negative) Urine Bilirubin (Negative) Urine Urobilinogen (<2.0) mg/dL Ur Leukocyte Esterase (Negative) Urine RBC (0-5) /hpf Urine WBC (0-5) /hpf Ur Squamous Epith Cells (0-4) /hpf Hyaline Casts (0-2) /lpf Disposition <Addie Peres - Last Filed: 08/22/23 19:25> Is patient prescribed a controlled substance at d/c from ED?: No Time of Disposition: 21:31 <Anibal Puentes - Last Filed: 08/22/23 21:36> Clinical Impression: Partial bowel obstruction, Mesenteric abscess Disposition: ADMITTED IP TO THIS HOSP Referrals: Arben Hill DO [Primary Care Provider] - 1-2 days
[2023-08-22 20:02] LABS: Basophils % (A) 0 %; Eosinophils # (A) 0.1 k/uL (0-0.7); Eosinophils % (A) 1 %; HCT 34.8 % (34.0-46.0); HGB 11.6 gm/dL (11.4-16.0); Lymphocytes # (A) 0.7 k/uL (1.0-4.8); Lymphocytes % (A) 6 %; MCH 32.3 pg (25.0-35.0); MCHC 33.5 g/dL (31.0-37.0); MCV 96.4 fL (80.0-100.0); Mean Platelet Volume 7.2; Monocytes # (A) 0.5 k/uL (0-1.0); Monocytes % (A) 4 %; Neutrophils # (A) 10.2 k/uL (1.3-7.7); Neutrophils % (A) 87 %; Platelet Count 196 k/uL (150-450); RBC 3.61 m/uL (3.80-5.40); RDW 13.1 % (11.5-15.5); WBC 11.6 k/uL (3.8-10.6)
[2023-08-22 20:10] LABS: Appearance,Urine Clear (Clear); Bilirubin,Urine Negative (Negative); Blood,Urine Small (Negative); Color,Urine Colorless; Glucose,Urine (UA) Negative (Negative); Hyaline Casts,Urine 1 /lpf (0-2); Ketones,Urine Negative (Negative); Leukocyte Esterase,Urine Negative (Negative); Nitrite,Urine Negative (Negative); Protein,Urine 1+ (Negative); RBC,Urine 3 /hpf (0-5); Specific Gravity,Urine 1.037 (1.001-1.035); Squamous Epithelial Cell,Urine 2 /hpf (0-4); Urobilinogen,Urine <2.0 mg/dL (<2.0); WBC,Urine 4 /hpf (0-5)
[2023-08-22 20:13] LABS: ALT 25 U/L (4-34); AST 39 U/L (14-36); African American GFR (CKD) 82 (>60 ml/min/1.73 sqM); Albumin 4.1 g/dL (3.5-5.0); Alkaline Phosphatase 102 U/L (38-126); Amylase 52 U/L (30-110); Anion Gap 12 mmol/L; Blood Urea Nitrogen 24 mg/dL (7-17); Calcium 9.3 mg/dL (8.4-10.2); Carbon Dioxide 22 mmol/L (22-30); Chloride 93 mmol/L (98-107); Glucose 118 mg/dL (74-99); Lipase 108 U/L (23-300); Non-African American GFR(CKD) 72 (>60 ml/min/1.73 sqM); Potassium 3.8 mmol/L (3.5-5.1); Sodium 127 mmol/L (137-145); Total Bilirubin 0.8 mg/dL (0.2-1.3); Total Protein 6.9 g/dL (6.3-8.2)
[2023-08-22] MEDS ORDERED: HYDROmorphone 0.5 MG/0.5 ML SYRINGE IVP PRN (21:36)
[2023-08-22] MEDS ORDERED: NALOXONE 0.4 MG/ML 1 ML VIAL IV PRN (21:36)
[2023-08-22] MEDS: SODIUM CHLORIDE 0.9% 1,000 ML IV STA (21:52)
[2023-08-22] MEDS: PIPERACILLIN-TAZOBACTAM 3.375 GM in SODIUM CHLORIDE 0.9% 100 ML IVPB STA (21:52)
[2023-08-22] MEDS: MORPHINE SULFATE 4 MG/ML SYRINGE IV PRN (22:18)
[2023-08-22] MEDS: SODIUM CHLORIDE 0.9% 1,000 ML IV SCH (23:17)
[2023-08-23] MEDS: SODIUM CHLORIDE 0.9% 1,000 ML IV SCH (06:35)
[2023-08-23] MEDS: PANTOPRAZOLE 40 MG/10 ML VIAL IV SCH (08:17)
[2023-08-23] MEDS: amLODIPine 10 MG TAB PO SCH (08:17)
[2023-08-23] MEDS: PIPERACILLIN-TAZOBACTAM 3.375 GM in SODIUM CHLORIDE 0.9% 100 ML IVPB SCH (08:17)
[2023-08-23] MEDS: FERROUS SULFATE 325 MG TAB PO SCH (08:17)
[2023-08-23] MEDS: LOSARTAN 25 MG TAB PO SCH (08:20)
[2023-08-23] MEDS: LEVOTHYROXINE 75 MCG TAB PO SCH (08:20)
[2023-08-23] MEDS: DESVENLAFAXINE SUCCINATE 50 MG TAB.ER.24H PO SCH (08:45)
--- NOTE | 2023-08-23 10:44 | P.CONS ---
History of Present Illness - Reason for Consult Consult date: 08/23/23 - History of Present Illness Patient is a 88-year-old female with history of hypertension, hypothyroidism, dyslipidemia, depression presenting with abdominal pain. She claims that her symptoms started 4 days ago. She had difficulty eating and drinking because of the pain. Pain is hard to localize. It continued to worsen. This prompted her to go to her PCP. She had an outpatient CT by her PCP, and was noted to have small bowel obstruction due to mesenteric abscess. She was then asked to come to the ER. She denies any fevers or chills, any changes in her bowel habits, any urinary complaints. She denies any previous abdominal infection or previous abdominal surgeries. She denies any current smoking or alcohol use or illicit drug use. Denies any cancer history. In the ER, temperature was 98.4, pulse 91, respiratory rate 18, blood pressure 129/69, saturating at 97% on room air. CT report shows partial SBO secondary to centrally sick centimeter developing mesenteric abscess, likely extraperitoneal. WBC 11.6, sodium 127, chloride 93, creatinine 0.75, lipase 108, urinalysis negative. Patient admitted to general surgery. [facility] [place] physicians has been consulted for medical management. Patient has already received IV Zosyn in the ED. Pertinent positives and negatives as discussed in HPI, a complete review of systems was performed and all other systems are negative. Patient seen and examined at bedside. Vital signs reviewed General: nontoxic, no distress, appears at stated age Derm: warm, dry Head: atraumatic, normocephalic, symmetric Eyes: EOMI, no lid lag, anicteric sclera, pupils equal round reactive to light ENT: Nose and ears atraumatic Neck: No thyromegaly, supple Mouth: no lip lesion, mucus membranes moist Cardiovascular: S1S2 reg, no murmur, no edema Lungs: clear to auscultation bilateral, no rhonchi, no rales, no wheeze, no accessory muscle use Abdominal: soft, nontender to palpation, no guarding, no appreciable organomegaly Ext: no gross muscle atrophy, muscle strength muscle strength 5 out of 5 in all 4 extremities, no contractures Neuro: CN II-XII grossly intact Psych: Alert, oriented, appropriate affect Assessment/Plan: Active: Mesenteric abscess Partial small bowel obstruction secondary to above Abdominal pain secondary to above Leukocytosis Patient admitted to general surgery, may need surgical intervention Currently n.p.o. Continue IV Zosyn 3.375 g every 8 hours Pain control with IV Dilaudid and IV morphine as needed, monitor for sedation Zofran as needed Repeat CBC tomorrow Hyponatremia, likely hypovolemic Repeat BMP tomorrow Continue normal saline at 75 cc an hour Hypertension Continue amlodipine 10 mg daily, losartan 25 twice daily Dyslipidemia Continue atorvastatin 10 Hypothyroidism 75 levothyroxine Depression Continue desvenlafaxine Thank you for allowing us to participate in the care of this pleasant patient. Do not hesitate to contact us with questions. Someone can be reached from the [facility] hospitalist group all hours of the day at [phone] or via B[employer]. Past Medical History Past Medical History: Hypertension, Thyroid Disorder History of Any Multi-Drug Resistant Organisms: None Reported Past Surgical History: Adenoidectomy, Tonsillectomy Past Anesthesia/Blood Transfusion Reactions: No Reported Reaction Past Psychological History: No Psychological Hx Reported Smoking Status: Never smoker Past Alcohol Use History: None Reported Past Drug Use History: None Reported Medications and Allergies Home Medications Medication Instructions Recorded Confirmed Type Desvenlafaxine Succinate [Pristiq 50 mg PO DAILY 09/27/21 08/22/23 History ER] Levothyroxine Sodium [Synthroid] 75 mcg PO DAILY 09/27/21 08/22/23 History Losartan Potassium [Cozaar] 25 mg PO BID 09/27/21 08/22/23 History amLODIPine [Norvasc] 10 mg PO DAILY #0 tab 10/01/21 08/22/23 Rx Calcium 1000mg 2,000 mg PO BID 08/22/23 08/22/23 History Ferrous Sulfate [Feosol] 325 mg PO DAILY 08/22/23 08/22/23 History Magnesium Oxide [Magox 400] 400 mg PO DAILY 08/22/23 08/22/23 History Rosuvastatin Calcium 5 mg PO HS 08/22/23 08/22/23 History Vitamin D3(Unknown Dose) 1 tab PO DAILY 08/22/23 08/22/23 History Allergies Allergy/AdvReac Type Severity Reaction Status Date / Time No Known Allergies Allergy Verified 08/22/23 22:11 Physical Exam Vitals: Vital Signs Temp Pulse Resp BP Pulse Ox 08/23/23 06:36 98.1 F 08/23/23 06:00 72 18 116/60 96 08/23/23 05:00 74 18 117/60 94 L 08/23/23 04:00 68 18 106/53 96 08/23/23 03:00 67 18 113/56 96 08/23/23 02:00 82 18 114/63 95 08/23/23 01:00 86 18 108/57 95 08/23/23 00:08 86 18 108/57 95 08/23/23 00:00 18 109/53 94 L 08/22/23 23:00 18 113/58 94 L 08/22/23 22:11 99.5 F 89 18 130/64 98 08/22/23 22:00 18 130/64 100 08/22/23 21:35 18 100 08/22/23 18:58 98.4 F 91 18 129/69 97 Intake and Output 08/22/23 08/23/23 08/23/23 22:59 06:59 14:59 Other: Weight 54.885 kg Results CBC & Chem 7: 08/22/23 19:27 08/22/23 19:27 Labs: Abnormal Lab Results - Last 24 Hours (Table) 08/22/23 08/22/23 08/22/23 Range/Units 19:24 19:27 19:27 WBC 11.6 H (3.8-10.6) k/uL RBC 3.61 L (3.80-5.40) m/uL Neutrophils # 10.2 H (1.3-7.7) k/uL Lymphocytes # 0.7 L (1.0-4.8) k/uL Sodium 127 L (137-145) mmol/L Chloride 93 L (98-107) mmol/L BUN 24 H (7-17) mg/dL Glucose 118 H (74-99) mg/dL AST 39 H (14-36) U/L Ur Specific [place] 1.037 H (1.001-1.035) Urine Protein 1+ H (Negative) Urine Blood Small H (Negative)
[2023-08-23 12:38] LABS: HCT 34.1 % (34.0-46.0); HGB 11.2 gm/dL (11.4-16.0); MCH 32.5 pg (25.0-35.0); MCHC 32.8 g/dL (31.0-37.0); MCV 99.1 fL (80.0-100.0); Mean Platelet Volume 7.9; Platelet Count 208 k/uL (150-450); RBC 3.44 m/uL (3.80-5.40); RDW 13.1 % (11.5-15.5); WBC 8.1 k/uL (3.8-10.6)
[2023-08-23 12:47] LABS: ALT 20 U/L (4-34); AST 29 U/L (14-36); African American GFR (CKD) >90 (>60 ml/min/1.73 sqM); Albumin 3.1 g/dL (3.5-5.0); Albumin/Globulin Ratio 1.3; Alkaline Phosphatase 85 U/L (38-126); Anion Gap 6 mmol/L; Blood Urea Nitrogen 17 mg/dL (7-17); Calcium 8.3 mg/dL (8.4-10.2); Carbon Dioxide 23 mmol/L (22-30); Chloride 104 mmol/L (98-107); Globulin 2.4 g/dL; Glucose 89 mg/dL (74-99); Magnesium 2.3 mg/dL (1.6-2.3); Non-African American GFR(CKD) 78 (>60 ml/min/1.73 sqM); Potassium 3.9 mmol/L (3.5-5.1); Sodium 133 mmol/L (137-145); Total Bilirubin 0.5 mg/dL (0.2-1.3); Total Protein 5.5 g/dL (6.3-8.2)
--- NOTE | 2023-08-23 13:16 | P.GSHP ---
History of Present Illness H&P Date: 08/23/23 CHIEF COMPLAINT: Abdominal pain HISTORY OF PRESENT ILLNESS: This is a 88-year-old female who presented with complaints of abdominal pain on both the right lower and left lower quadrants x [address] scan completed outpatient. She is never experienced pain like this before. Denies any nausea or vomiting. Does report decreased appetite. Denies any fever chills or sweats. She does feel bloated. Last bowel movement was 2 days ago. She is passing a small amount of flatus. CT s can abdomen and pelvis had reported partial small bowel obstruction secondary to centralized 6 cm developing mesenteric abscess. No pneumoperitoneum. Patient denies any prior abdominal surgeries. Denies any cardiac history. PAST MEDICAL HISTORY: Hypertension, hypothyroidism PAST SURGICAL HISTORY: Adenoidectomy, tonsillectomy MEDICATIONS: See below ALLERGIES: See below SOCIAL HISTORY: No illicit drug use. REVIEW OF SYSTEMS: CONSTITUTIONAL: Denies fever or chills. HEENT: Denies blurred vision, vision changes, or eye pain. Denies hemoptysis CARDIOVASCULAR: Denies chest pain or pressure. RESPIRATORY: No shortness of breath. GASTROINTESTINAL: See HPI for pertinent findings HEMATOLOGIC: Denies bleeding disorders. GENITOURINARY: Denies any blood in urine or increased urinary frequency. SKIN: Denies pruitis. Denies rash. PHYSICAL EXAM: VITAL SIGNS: Reviewed GENERAL: Well-developed in no acute distress. HEENT: No sclera icterus. Extraocular movements grossly intact. Moist buccal mucosa. Head is atraumatic, normocephalic. No nasal drainage. ABDOMEN: Distended. Tenderness to palpation in the left and right lower quadrants NEUROLOGIC: Alert and oriented. Cranial nerves II through XII grossly intact. LABORATORY DATA: WBC 11.6 down to 8.1 Hgb 11.2 platelets 208 Sodium is improved from 1 27-1 33 potassium 3.9 creatinine 0.68 Lactic acid 1.4 IMAGING: CT scan abdomen pelvis reports partial small bowel obstruction secondary to centralize 6 cm developing mesenteric abscess. The process is extraperitoneal mesenteric as there is no pneumoperitoneum or peritoneal fluid throughout the abdomen and pelvis. ASSESSMENT: 1. Partial small bowel obstruction secondary to developing mesenteric abscess PLAN: -Patient scheduled for exploratory laparotomy and small bowel resection today with Dr. Abrams -Keep patient n.p.o. -Continue IV antibiotics -Continue IV fluids -Continue pain medication as needed -Medical service consulted for medical management Physician Bone Cooking Operator note has been reviewed by physician. Signing provider agrees with the documented findings, assessment, and plan of care. Past Medical History Past Medical History: Hypertension, Thyroid Disorder History of Any Multi-Drug Resistant Organisms: None Reported Past Surgical History: Adenoidectomy, Tonsillectomy Past Anesthesia/Blood Transfusion Reactions: No Reported Reaction Past Psychological History: No Psychological Hx Reported Smoking Status: Never smoker Past Alcohol Use History: None Reported Past Drug Use History: None Reported Medications and Allergies Home Medications Medication Instructions Recorded Confirmed Type Desvenlafaxine Succinate [Pristiq 50 mg PO DAILY 09/27/21 08/22/23 History ER] Levothyroxine Sodium [Synthroid] 75 mcg PO DAILY 09/27/21 08/22/23 History Losartan Potassium [Cozaar] 25 mg PO BID 09/27/21 08/22/23 History amLODIPine [Norvasc] 10 mg PO DAILY #0 tab 10/01/21 08/22/23 Rx Calcium 1000mg 2,000 mg PO BID 08/22/23 08/22/23 History Ferrous Sulfate [Feosol] 325 mg PO DAILY 08/22/23 08/22/23 History Magnesium Oxide [Magox 400] 400 mg PO DAILY 08/22/23 08/22/23 History Rosuvastatin Calcium 5 mg PO HS 08/22/23 08/22/23 History Vitamin D3(Unknown Dose) 1 tab PO DAILY 08/22/23 08/22/23 History Allergies Allergy/AdvReac Type Severity Reaction Status Date / Time No Known Allergies Allergy Verified 08/22/23 22:11 Surgical - Exam Vital Signs Temp Pulse Resp BP Pulse Ox 98.4 F 91 18 129/69 97 08/22/23 18:58 08/22/23 18:58 08/22/23 18:58 08/22/23 18:58 08/22/23 18:58 Results - Labs 08/23/23 11:59 08/23/23 11:59 Abnormal Lab Results - Last 24 Hours (Table) 08/22/23 08/22/23 08/22/23 Range/Units : 19:27 19:27 WBC 11.6 H (3.8-10.6) k/uL RBC 3.61 L (3.80-5.40) m/uL Hgb (11.4-16.0) gm/dL Neutrophils # 10.2 H (1.3-7.7) k/uL Lymphocytes # 0.7 L (1.0-4.8) k/uL Sodium 127 L (137-145) mmol/L Chloride 93 L (98-107) mmol/L BUN 24 H (7-17) mg/dL Glucose 118 H (74-99) mg/dL AST 39 H (14-36) U/L Ur Specific [place] 1.037 H (1.001-1.035) Urine Protein 1+ H (Negative) Urine Blood Small H (Negative) 08/23/23 Range/Units 11:59 WBC (3.8-10.6) k/uL RBC 3.44 L (3.80-5.40) m/uL Hgb 11.2 L (11.4-16.0) gm/dL Neutrophils # (1.3-7.7) k/uL Lymphocytes # (1.0-4.8) k/uL Sodium (137-145) mmol/L Chloride (98-107) mmol/L BUN (7-17) mg/dL Glucose (74-99) mg/dL AST (14-36) U/L Ur Specific [place] (1.001-1.035) Urine Protein (Negative) Urine Blood (Negative) Diabetes panel 08/22/23 Range/Units 19:27 Sodium 127 L (137-145) mmol/L Potassium 3.8 (3.5-5.1) mmol/L Chloride 93 L (98-107) mmol/L Carbon Dioxide 22 (22-30) mmol/L BUN 24 H (7-17) mg/dL Creatinine 0.75 (0.52-1.04) mg/dL Glucose 118 H (74-99) mg/dL Calcium 9.3 (8.4-10.2) mg/dL AST 39 H (14-36) U/L ALT 25 (4-34) U/L Alkaline Phosphatase 102 (38-126) U/L Total Protein 6.9 (6.3-8.2) g/dL Albumin 4.1 (3.5-5.0) g/dL Calcium panel 08/22/23 Range/Units 19:27 Calcium 9.3 (8.4-10.2) mg/dL Albumin 4.1 (3.5-5.0) g/dL Pituitary panel 08/22/23 Range/Units 19:27 Sodium 127 L (137-145) mmol/L Potassium 3.8 (3.5-5.1) mmol/L Chloride 93 L (98-107) mmol/L Carbon Dioxide 22 (22-30) mmol/L BUN 24 H (7-17) mg/dL Creatinine 0.75 (0.52-1.04) mg/dL Glucose 118 H (74-99) mg/dL Calcium 9.3 (8.4-10.2) mg/dL Adrenal panel 08/22/23 Range/Units 19:27 Sodium 127 L (137-145) mmol/L Potassium 3.8 (3.5-5.1) mmol/L Chloride 93 L (98-107) mmol/L Carbon Dioxide 22 (22-30) mmol/L BUN 24 H (7-17) mg/dL Creatinine 0.75 (0.52-1.04) mg/dL Glucose 118 H (74-99) mg/dL Calcium 9.3 (8.4-10.2) mg/dL Total Bilirubin 0.8 (0.2-1.3) mg/dL AST 39 H (14-36) U/L ALT 25 (4-34) U/L Alkaline Phosphatase 102 (38-126) U/L Total Protein 6.9 (6.3-8.2) g/dL Albumin 4.1 (3.5-5.0) g/dL
[2023-08-23] MEDS ORDERED: GLYCOPYRROLATE 0.2 MG/ML 2 ML VIAL ONE (16:38)
[2023-08-23] MEDS ORDERED: ROCURONIUM 10 MG/ML (5 ML VIAL) IV ONE (16:38)
[2023-08-23] MEDS ORDERED: fentaNYL (PF) 50 MCG/ML 2 ML AMP ONE (16:38)
[2023-08-23] MEDS ORDERED: LIDOCAINE 1% INJ 10MG/ML (20 ML MDV) ONE (16:38)
[2023-08-23] MEDS ORDERED: PROPOFOL 10 MG/ML 20 ML VIAL IV ONE (16:38)
[2023-08-23] MEDS ORDERED: SUCCINYLCHOLINE CHLORIDE 200 MG/10 ML VIAL IV ONE (16:38)
[2023-08-23] MEDS ORDERED: NEOSTIGMINE 1 MG/ML 10 ML VIAL ONE (16:38)
[2023-08-23] MEDS: LACTATED RINGERS 1,000 ML IV ONE (16:41)
[2023-08-23] MEDS: HEPARIN SODIUM,PORCINE 5,000 UNIT/ML 1 ML VIAL SQ ONE (16:43)
[2023-08-23] MEDS ORDERED: ONDANSETRON 4 MG/2 ML VIAL IVP PRN (17:30)
[2023-08-23] MEDS: HYDROmorphone 0.5 MG/0.5 ML SYRINGE IVP ONE ×4 (17:51→18:25)
--- NOTE | 2023-08-23 17:52 | P.OP ---
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 She received general endotracheal tube anesthesia. Her abdomen was prepped and draped in sterile fashion. The abs under 3 midline incision. Electrocautery used to divide the abdominal wall. The peritoneal cavity entered. The small bowel was run. And in the mid jejunum there was an abscess in bed Seri seen. There was a 10 cm mass in the mesentery. There were very large jejunal diverticulum in the area. The abscess to be appeared to be related to a perforated jejunal diverticulum. At this point the jejunum was transected proximally distally with a MEDINA stapler. Then using the Enseal device the mesentery of the bowel was divided. The specimen to pathology. A [id number] functional end and stapled S was then created with the MEDINA and TA stapler. 3-0 GI silk suture was used the crotch stitch. The wound of the mesentery was mehrdad sed with 3-0 GI silk suture. The abdomen is irrigated there is no bleeding seen. The fascia was closed with looped #1 PDS suture. Skin was closed tables. Patient tolerated well. She was sent to recovery room in stable condition.
[2023-08-23] MEDS: FAMOTIDINE 20 MG/2 ML VIAL IV SCH (20:52)
[2023-08-23] MEDS: D5-0.45% NACL WITH KCL 20MEQ/L 1,000 ML IV SCH (20:52)
[2023-08-23] MEDS: ALVIMOPAN 12 MG CAPSULE PO SCH (20:55)
[2023-08-23] MEDS: ATORVASTATIN 10 MG TAB PO SCH (20:55)
[2023-08-23] MEDS: HEPARIN SODIUM,PORCINE 5,000 UNIT/ML 1 ML VIAL SQ SCH (23:35)
[2023-08-24 11:21] LABS: BUN/Creat Ratio 21.71 Ratio (12.00-20.00); Blood Urea Nitrogen 15.2 mg/dL (9.0-27.0); Calcium 8.3 mg/dL (8.7-10.3); Carbon Dioxide 20.6 mmol/L (21.6-31.8); Chloride 104 mmol/L (96-109); Glucose 173 mg/dL (70-110); Magnesium 2.1 mg/dL (1.5-2.4); Potassium 4.3 mmol/L (3.5-5.5); Sodium 136 mmol/L (135-145)
[2023-08-24 11:35] LABS: Basophils # (M) 0 X 10*3/uL (0.00-0.10); Eosinophils # (M) 0 X 10*3/uL (0.04-0.35); HCT 35.9 % (37.2-46.3); HGB 11.7 g/dL (12.0-15.0); MCH 31.5 pg (27.0-32.0); MCHC 32.6 g/dL (32.0-37.0); MCV 96.8 FL (80.0-97.0); Mean Platelet Volume 9.9 FL (9.5-12.2); Metamyelocytes % 7 % (0-0); Monocytes # (M) 0.54 X 10*3/uL (0.20-1.00); NRBC Per 100 WBC 0 X 10*3/uL (0.00-0.01); Neutrophils # (M) 5.29 X 10*3/uL (1.80-7.70); Neutrophils % (M) 79 %; Platelet Count 220 X 10*3/uL (140-440); RBC 3.71 X 10*6/uL (4.10-5.20); RBC Morphology Normal (Normal); RDW 13.5 % (11.5-14.5); WBC 6.69 X 10*3/uL (4.50-10.00)
--- NOTE | 2023-08-24 11:40 | P.PN ---
Subjective Progress Note Date: 08/24/23 Subjective: Patient seen and examined at bedside. No acute events overnight. Having minimal abdominal pain at the site of surgery. Has not passed gas or had any bowel movements yet. Denies any nausea or vomiting. Has not tried to get out of the bed yet. Pertinent positives and negatives as discussed above, a complete review of systems was performed and all other systems are negative. Vitals Signs Reviewed. General: Nontoxic, no distress, appears at stated age Derm: Warm, dry, surgical site incision sites clean, dry, intact Head: Atraumatic, normocephalic, symmetric Eyes: EOMI, no lid lag, anicteric sclera Mouth: No lip lesion, mucus membranes moist Cardiovascular: S1S2 reg, no murmur Lungs: CTA bilateral, no rhonchi, no rales, no accessory muscle use Abdominal: Soft, nontender to palpation, no guarding, no appreciable organomegaly Ext: No gross muscle atrophy, no edema, no contractures Neuro: CN II-XI grossly intact, no focal neuro deficits Psych: Alert, oriented, appropriate affect Data Reviewed Today: Pertinent Labs: WBC 6.69, hemoglobin 11.7, platelet 220, sodium 136, creatinine 0.7, blood glucose 173, magnesium 2.1 Imaging: No new imaging 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 Status post ex lap and small bowel resection Abdominal pain secondary to above, resolving Leukocytosis, resolved Surgery following -Patient also on Entereg 12 mg twice daily Currently n.p.o., on D5 half-normal saline at 125 cc an hour Continue IV Zosyn 3.375 g every 8 hours Pain control with IV Dilaudid and IV morphine as needed, monitor for sedation Zofran as needed Continue to monitor CBC and BMP -Subcu heparin for DVT prophylaxis Hyponatremia, likely hypovolemic, resolved Hypertension Continue amlodipine 10 mg daily, losartan 25 twice daily Dyslipidemia Continue atorvastatin 10 Hypothyroidism 75 levothyroxine Depression Continue desvenlafaxine Thank you for allowing us to participate in the care of this pleasant patient. Do not hesitate to contact us with questions. Someone can be reached from the [facility] hospitalist group all hours of the day at [phone] or via perfect serve. Objective - Vital Signs Vital signs: Vital Signs Temp 97.6 F 08/24/23 09:11 Pulse 83 08/24/23 09:11 Resp 16 08/24/23 09:11 BP 128/67 08/24/23 09:11 Pulse Ox 96 08/24/23 09:11 FiO2 Intake & Output 08/23/23 08/24/23 08/24/23 18:59 06:59 18:59 Intake Total 300 Output Total 180 400 Balance 120 -400 Weight 54.885 kg Intake: IV 300 Output: Urine 150 400 Estimated Blood Loss 30 Other: Voiding Method Indwelling Catheter Indwelling Catheter - Labs CBC & Chem 7: 08/24/23 06:42 08/24/23 06:42 Labs: Abnormal Lab Results - Last 24 Hours (Table) 08/23/23 08/23/23 08/24/23 Range/Units 11:59 11:59 06:42 RBC 3.44 L 3.71 L (3.80-5.40) m/uL Hgb 11.2 L 11.7 L (11.4-16.0) gm/dL Hct 35.9 L (37.2-46.3) % Lymphocytes # (Manual) 0.40 L (0.90-5.00) X 10*3/uL Eosinophils # (Manual) 0 L (0.04-0.35) X 10*3/uL Sodium 133 L (137-145) mmol/L Carbon Dioxide (21.6-31.8) mmol/L BUN/Creatinine Ratio (12.00-20.00) Ratio Glucose (70-110) mg/dL Calcium 8.3 L (8.4-10.2) mg/dL Total Protein 5.5 L (6.3-8.2) g/dL Albumin 3.1 L (3.5-5.0) g/dL 08/24/23 Range/Units 06:42 RBC (3.80-5.40) m/uL Hgb (11.4-16.0) gm/dL Hct (37.2-46.3) % Lymphocytes # (Manual) (0.90-5.00) X 10*3/uL Eosinophils # (Manual) (0.04-0.35) X 10*3/uL Sodium (137-145) mmol/L Carbon Dioxide 20.6 L (21.6-31.8) mmol/L BUN/Creatinine Ratio 21.71 H (12.00-20.00) Ratio Glucose 173 H (70-110) mg/dL Calcium 8.3 L (8.4-10.2) mg/dL Total Protein (6.3-8.2) g/dL Albumin (3.5-5.0) g/dL Microbiology - Last 24 Hours (Table) 08/22/23 19:27 Blood Culture - Preliminary Blood 08/22/23 19:42 Blood Culture - Preliminary Blood
--- NOTE | 2023-08-24 14:52 | P.PN ---
Subjective Progress Note Date: 08/24/23 CHIEF COMPLAINT: Mesenteric abscess HISTORY OF PRESENT ILLNESS: Patient postop day #1 status post exploratory laparotomy with small bowel resection. Patient reports her pain is controlled. Denies any nausea or vomiting. No flatus. Afebrile. WBC is 6.69 Hgb 11.7 PHYSICAL EXAM: VITAL SIGNS: Reviewed. GENERAL: Well-developed in no acute distress. ABDOMEN: Soft. Mildly distended. Tender at incision site. Minimal blood saturation noted at distal aspect of incisional dressing NEUROLOGIC: Alert and oriented. Cranial nerves II through XII grossly intact. ASSESSMENT: 1. 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 -Encourage patient to increase activity level. Consult PT OT -Encourage patient to use incentive spirometer -Continue pain management -Continue IV fluids -Continue antibiotics -DVT prophylaxis subcu heparin and GI prophylaxis Pepcid Physician Tire Setter note has been reviewed by physician. Signing provider agrees with the documented findings, assessment, and plan of care. Objective - Vital Signs Vital signs: Vital Signs Temp 98.8 F 08/24/23 11:53 Pulse 85 08/24/23 11:53 Resp 18 08/24/23 11:53 BP 113/58 08/24/23 11:53 Pulse Ox 95 08/24/23 11:53 FiO2 Intake & Output 08/23/23 08/24/23 08/24/23 18:59 06:59 18:59 Intake Total 300 Output Total 180 400 Balance 120 -400 Weight 54.885 kg Intake: IV 300 Output: Urine 150 400 Estimated Blood Loss 30 Other: Voiding Method Indwelling Catheter Indwelling Catheter - Labs CBC & Chem 7: 08/24/23 06:42 08/24/23 06:42 Labs: Abnormal Lab Results - Last 24 Hours (Table) 08/24/23 08/24/23 Range/Units 06:42 06:42 RBC 3.71 L (4.10-5.20) X 10*6/uL Hgb 11.7 L (12.0-15.0) g/dL Hct 35.9 L (37.2-46.3) % Lymphocytes # (Manual) 0.40 L (0.90-5.00) X 10*3/uL Eosinophils # (Manual) 0 L (0.04-0.35) X 10*3/uL Carbon Dioxide 20.6 L (21.6-31.8) mmol/L BUN/Creatinine Ratio 21.71 H (12.00-20.00) Ratio Glucose 173 H (70-110) mg/dL Calcium 8.3 L (8.7-10.3) mg/dL Microbiology - Last 24 Hours (Table) 08/22/23 19:27 Blood Culture - Preliminary Blood 08/22/23 19:42 Blood Culture - Preliminary Blood
[2023-08-25 10:47] LABS: HCT 31.9 % (37.2-46.3); HGB 10.4 g/dL (12.0-15.0); MCHC 32.6 g/dL (32.0-37.0); MCV 95.2 FL (80.0-97.0); Mean Platelet Volume 9.7 FL (9.5-12.2); NRBC Per 100 WBC 0 X 10*3/uL (0.00-0.01); Platelet Count 219 X 10*3/uL (140-440); RBC 3.35 X 10*6/uL (4.10-5.20); RDW 13.8 % (11.5-14.5); WBC 9.77 X 10*3/uL (4.50-10.00)
[2023-08-25 11:01] LABS: BUN/Creat Ratio 15.29 Ratio (12.00-20.00); Blood Urea Nitrogen 10.7 mg/dL (9.0-27.0); Carbon Dioxide 20.6 mmol/L (21.6-31.8); Chloride 104 mmol/L (96-109); Glucose 141 mg/dL (70-110); Magnesium 2.2 mg/dL (1.5-2.4); Sodium 136 mmol/L (135-145)
[2023-08-25 12:01] LABS: Basophils # (A) 0.02 X 10*3/uL (0.00-0.10); Basophils % (A) 0.2 %; Eosinophils # (A) 0.03 X 10*3/uL (0.04-0.35); Eosinophils % (A) 0.3 %; Lymphocytes # (A) 0.73 X 10*3/uL (0.90-5.00); Lymphocytes % (A) 7.5 %; Monocytes # (A) 0.41 X 10*3/uL (0.20-1.00); Monocytes % (A) 4.2 %; Neutrophils # (A) 8.48 X 10*3/uL (1.80-7.70); Neutrophils % (A) 86.8 %; RBC Morphology Normal (Normal)
[2023-08-25] MEDS: LACTATED RINGERS 1,000 ML IV SCH ×2 (13:22)
--- NOTE | 2023-08-25 13:48 | P.PN ---
Subjective Progress Note Date: 08/25/23 CHIEF COMPLAINT: Mesenteric abscess HISTORY OF PRESENT ILLNESS: Patient postop day #2 status post exploratory laparotomy with small bowel resection. Patient has abdominal pain. Reports it's controlled. Denies any nausea or vomiting. No flatus. Afebrile. WBC 9.77 hgb 10.4 PHYSICAL EXAM: VITAL SIGNS: Reviewed. GENERAL: Well-developed in no acute distress. ABDOMEN: Soft. Mildly distended. Tender at incision site. blood saturation noted at distal aspect of incisional dressing NEUROLOGIC: Alert and oriented. Cranial nerves II through XII grossly intact. ASSESSMENT: 1. 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 -Encourage patient to increase activity level. Consult PT OT -Encourage patient to use incentive spirometer -Continue pain management. Add IV Tylenol for pain -Continue IV fluids -Continue antibiotics -DVT prophylaxis subcu heparin and GI prophylaxis Pepcid Physician Waiver Analyst note has been reviewed by physician. Signing provider agrees with the documented findings, assessment, and plan of care. Objective - Vital Signs Vital signs: Vital Signs Temp 98.0 F 08/25/23 11:51 Pulse 82 08/25/23 11:51 Resp 17 08/25/23 11:51 BP 108/62 08/25/23 11:51 Pulse Ox 91 L 08/25/23 11:51 FiO2 Intake & Output 08/24/23 08/25/23 08/25/23 18:59 06:59 18:59 Output Total 600 Balance -600 Output: Urine 600 Other: Voiding Method Indwelling Catheter Bedside Commode Bedside Commode # Voids 1 - Labs CBC & Chem 7: 08/25/23 06:11 08/25/23 06:11 Labs: Abnormal Lab Results - Last 24 Hours (Table) 08/25/23 08/25/23 Range/Units 06:11 06:11 RBC 3.35 L (4.10-5.20) X 10*6/uL Hgb 10.4 L (12.0-15.0) g/dL Hct 31.9 L (37.2-46.3) % Immature Gran # 0.10 H (0.00-0.04) X 10*3/uL Neutrophils # 8.48 H (1.80-7.70) X 10*3/uL Lymphocytes # 0.73 L (0.90-5.00) X 10*3/uL Eosinophils # 0.03 L (0.04-0.35) X 10*3/uL Carbon Dioxide 20.6 L (21.6-31.8) mmol/L Glucose 141 H (70-110) mg/dL Calcium 8.0 L (8.7-10.3) mg/dL Microbiology - Last 24 Hours (Table) 08/22/23 19:27 Blood Culture - Preliminary Blood 08/22/23 19:42 Blood Culture - Preliminary Blood
[2023-08-25] MEDS: ACETAMINOPHEN IV (For NPO) 1,000 MG in EMPTY BAG 1 BAG IVPB SCH (14:05)
--- NOTE | 2023-08-25 17:03 | P.PN ---
Subjective Progress Note Date: 08/25/23 Subjective: Pt reports mild amounts of passing gas, but no BM. 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 Status post ex lap and small bowel resection Abdominal pain secondary to above, resolving Leukocytosis, resolved Surgery following - Patient also on Entereg 12 mg twice daily Currently n.p.o., on D5 half-normal saline at 125 cc an hour Continue IV Zosyn 3.375 g every 8 hours Pain control with IV Dilaudid and IV morphine as needed, monitor for sedation Zofran as needed Continue to monitor CBC and BMP - Subcu heparin for DVT prophylaxis - 1L bolus of LR given today Hyponatremia, likely hypovolemic, resolved Hypertension Continue amlodipine 10 mg daily, losartan 25 twice daily Dyslipidemia Continue atorvastatin 10 Hypothyroidism 75 levothyroxine Depression Continue desvenlafaxine Thank you for allowing us to participate in the care of this pleasant patient. Do not hesitate to contact us with questions. Someone can be reached from the [facility] hospitalist group all hours of the day at [phone] or via perfect serve. Objective - Vital Signs Vital signs: Vital Signs Temp 98.4 F 08/25/23 16:26 Pulse 86 08/25/23 16:26 Resp 88 H 08/25/23 16:53 BP 116/64 08/25/23 16:26 Pulse Ox 84 L 08/25/23 16:26 FiO2 Intake & Output 08/24/23 08/25/23 08/25/23 18:59 06:59 18:59 Output Total 600 Balance -600 Output: Urine 600 Other: Voiding Method Indwelling Catheter Bedside Commode Bedside Commode # Voids 1 - Labs CBC & Chem 7: 08/25/23 06:11 08/25/23 06:11 Labs: Abnormal Lab Results - Last 24 Hours (Table) 08/25/23 08/25/23 Range/Units 06:11 06:11 RBC 3.35 L (4.10-5.20) X 10*6/uL Hgb 10.4 L (12.0-15.0) g/dL Hct 31.9 L (37.2-46.3) % Immature Gran # 0.10 H (0.00-0.04) X 10*3/uL Neutrophils # 8.48 H (1.80-7.70) X 10*3/uL Lymphocytes # 0.73 L (0.90-5.00) X 10*3/uL Eosinophils # 0.03 L (0.04-0.35) X 10*3/uL Carbon Dioxide 20.6 L (21.6-31.8) mmol/L Glucose 141 H (70-110) mg/dL Calcium 8.0 L (8.7-10.3) mg/dL Microbiology - Last 24 Hours (Table) 08/22/23 19:27 Blood Culture - Preliminary Blood 08/22/23 19:42 Blood Culture - Preliminary Blood
[2023-08-26] MEDS: PIPERACILLIN-TAZOBACTAM 3.375 GM in SODIUM CHLORIDE 0.9% 100 ML IVPB SCH (03:07)
[2023-08-26 08:56] LABS: Basophils # (A) 0.1 k/uL (0-0.2); Basophils % (A) 1 %; Eosinophils # (A) 0.3 k/uL (0-0.7); Eosinophils % (A) 2 %; HCT 36.2 % (34.0-46.0); HGB 11.2 gm/dL (11.4-16.0); Hypochromasia Moderate; Lymphocytes # (A) 0.8 k/uL (1.0-4.8); Lymphocytes % (A) 6 %; MCH 31.4 pg (25.0-35.0); MCV 101.3 fL (80.0-100.0); Macrocytosis Slight; Mean Platelet Volume 7.6; Monocytes # (A) 0.2 k/uL (0-1.0); Monocytes % (A) 2 %; Neutrophils # (A) 11.2 k/uL (1.3-7.7); Neutrophils % (A) 88 %; Platelet Count 279 k/uL (150-450); RBC 3.58 m/uL (3.80-5.40); RDW 13.6 % (11.5-15.5); WBC 12.7 k/uL (3.8-10.6)
[2023-08-26] MEDS: ONDANSETRON 4 MG/2 ML VIAL IVP PRN (09:07)
[2023-08-26 11:07] LABS: BUN/Creat Ratio 9.17 Ratio (12.00-20.00); Blood Urea Nitrogen 5.5 mg/dL (9.0-27.0); Calcium 8.2 mg/dL (8.7-10.3); Carbon Dioxide 21.7 mmol/L (21.6-31.8); Chloride 105 mmol/L (96-109); Glucose 153 mg/dL (70-110); Potassium 3.8 mmol/L (3.5-5.5); Sodium 136 mmol/L (135-145)
[2023-08-26 12:05] VITALS: BMI 22.1
--- NOTE | 2023-08-26 13:17 | P.PN ---
Subjective Progress Note Date: 08/26/23 CHIEF COMPLAINT: Mesenteric abscess HISTORY OF PRESENT ILLNESS: Patient postop day #3 status post exploratory laparotomy with small bowel resection. Patient sitting at bedside chair. She reports pain with movement. She occasionally has nausea. No flatus. Afebrile. WBC 12.7 Hgb 11.2 platelets 279 PHYSICAL EXAM: VITAL SIGNS: Reviewed. GENERAL: Well-developed in no acute distress. ABDOMEN: Soft. Mildly distended. Tender at incision site. Incisional dressing clean dry and intact NEUROLOGIC: Alert and oriented. Cranial nerves II through XII grossly intact. ASSESSMENT: 1. 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 -Encourage patient to increase activity level. Continue to work with PT OT -Encourage patient to use incentive spirometer -Continue pain management. Resume IV Tylenol for pain -Continue IV fluids -Continue antibiotics -DVT prophylaxis subcu heparin and GI prophylaxis Pepcid Physician Floor Representative note has been reviewed by physician. Signing provider agrees with the documented findings, assessment, and plan of care. Objective - Vital Signs Vital signs: Vital Signs Temp 97.6 F 08/26/23 12:31 Pulse 71 08/26/23 12:31 Resp 16 08/26/23 12:31 BP 109/65 08/26/23 12:31 Pulse Ox 94 L 08/26/23 07:24 FiO2 Intake & Output 08/25/23 08/26/23 08/26/23 18:59 06:59 18:59 Output Total 1050 Balance -1050 Weight 54.885 kg Output: Urine 1050 Other: Voiding Method Bedside Commode Bedside Commode Bedside Commode # Voids 1 1 1 - Labs CBC & Chem 7: 08/26/23 08:15 08/26/23 08:15 Labs: Abnormal Lab Results - Last 24 Hours (Table) 08/26/23 08/26/23 Range/Units 08:15 08:15 WBC 12.7 H (3.8-10.6) k/uL RBC 3.58 L (3.80-5.40) m/uL Hgb 11.2 L (11.4-16.0) gm/dL MCV 101.3 H (80.0-100.0) fL Neutrophils # 11.2 H (1.3-7.7) k/uL Lymphocytes # 0.8 L (1.0-4.8) k/uL BUN 5.5 L (9.0-27.0) mg/dL BUN/Creatinine Ratio 9.17 L (12.00-20.00) Ratio Glucose 153 H (70-110) mg/dL Calcium 8.2 L (8.7-10.3) mg/dL Microbiology - Last 24 Hours (Table) 08/22/23 19:27 Blood Culture - Preliminary Blood 08/22/23 19:42 Blood Culture - Preliminary Blood
--- NOTE | 2023-08-26 13:52 | P.PN ---
Subjective Progress Note Date: 08/26/23 Subjective: Pt denies passing gas, no BM. Has had mildly worse hypoxia and overall does not feel better today. Was able to sit in chair and ambulate hallway. 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 Hyponatremia, likely hypovolemic, resolved Hypertension Continue amlodipine 10 mg daily, losartan 25 twice daily Dyslipidemia Continue atorvastatin 10 Hypothyroidism 75 levothyroxine Depression Continue desvenlafaxine Thank you for allowing us to participate in the care of this pleasant patient. Do not hesitate to contact us with questions. Someone can be reached from the [facility] hospitalist group all hours of the day at [phone] or via perfect serve. Objective - Vital Signs Vital signs: Vital Signs Temp 97.6 F 08/26/23 12:31 Pulse 71 08/26/23 12:31 Resp 16 08/26/23 12:31 BP 109/65 08/26/23 12:31 Pulse Ox 94 L 08/26/23 07:24 FiO2 Intake & Output 08/25/23 08/26/23 08/26/23 18:59 06:59 18:59 Output Total 1050 Balance -1050 Weight 54.885 kg Output: Urine 1050 Other: Voiding Method Bedside Commode Bedside Commode Bedside Commode # Voids 1 1 1 - Labs CBC & Chem 7: 08/26/23 08:15 08/26/23 08:15 Labs: Abnormal Lab Results - Last 24 Hours (Table) 08/26/23 08/26/23 Range/Units 08:15 08:15 WBC 12.7 H (3.8-10.6) k/uL RBC 3.58 L (3.80-5.40) m/uL Hgb 11.2 L (11.4-16.0) gm/dL MCV 101.3 H (80.0-100.0) fL Neutrophils # 11.2 H (1.3-7.7) k/uL Lymphocytes # 0.8 L (1.0-4.8) k/uL BUN 5.5 L (9.0-27.0) mg/dL BUN/Creatinine Ratio 9.17 L (12.00-20.00) Ratio Glucose 153 H (70-110) mg/dL Calcium 8.2 L (8.7-10.3) mg/dL Microbiology - Last 24 Hours (Table) 08/22/23 19:27 Blood Culture - Preliminary Blood 08/22/23 19:42 Blood Culture - Preliminary Blood
[2023-08-26] MEDS: ACETAMINOPHEN IV (For NPO) 1,000 MG in EMPTY BAG 1 BAG IVPB SCH (17:54)
--- NOTE | 2023-08-26 18:17 | XR ---
EXAMINATION TYPE: XR chest 1V DATE OF EXAM: 08/26/2023 5:29 PM CLINICAL INDICATION:Female, 88 years old with history of hypoxia; COMPARISON: None TECHNIQUE: XR chest 1V Frontal view of the chest. FINDINGS: Lungs/Pleura: Patient is slightly rotated there are airspace opacities in the central location of the right middle lobe. There is no evidence of pleural effusion, focal consolidation, or pneumothorax. Pulmonary vascularity: Unremarkable. Heart/mediastinum: Cardiomediastinal silhouette is unremarkable. Musculoskeletal: No acute osseous pathology. IMPRESSION: Right middle lobe airspace opacities which could partially be due to patient positioning. Correlate f or pneumonia.
[2023-08-27] MEDS: traMADol 50 MG TAB PO PRN (09:52)
[2023-08-27 10:01] LABS: HCT 30.8 % (37.2-46.3); HGB 10.1 g/dL (12.0-15.0); MCH 30.9 pg (27.0-32.0); MCHC 32.8 g/dL (32.0-37.0); MCV 94.2 FL (80.0-97.0); Mean Platelet Volume 9.2 FL (9.5-12.2); NRBC Per 100 WBC 0 X 10*3/uL (0.00-0.01); Platelet Count 287 X 10*3/uL (140-440); RBC 3.27 X 10*6/uL (4.10-5.20); WBC 12.51 X 10*3/uL (4.50-10.00)
[2023-08-27 12:05] LABS: Basophils # (A) 0.07 X 10*3/uL (0.00-0.10); Basophils % (A) 0.6 %; Eosinophils # (A) 0.37 X 10*3/uL (0.04-0.35); Lymphocytes # (A) 1.36 X 10*3/uL (0.90-5.00); Lymphocytes % (A) 10.9 %; Monocytes # (A) 0.48 X 10*3/uL (0.20-1.00); Monocytes % (A) 3.8 %; Neutrophils # (A) 9.86 X 10*3/uL (1.80-7.70); Neutrophils % (A) 78.7 %; RBC Morphology Normal (Normal)
--- NOTE | 2023-08-27 15:20 | P.PN ---
Subjective Progress Note Date: 08/27/23 HISTORY OF PRESENT ILLNESS: Patient postop day #4 status post exploratory laparotomy with small bowel resection. Patient sitting at bedside chair. She reports pain with movement. She occasionally has nausea. No flatus. Afebrile. PHYSICAL EXAM: VITAL SIGNS: Reviewed. GENERAL: Well-developed in no acute distress. ABDOMEN: Soft. Mildly distended. Tender at incision site. Incisional dressing clean dry and intact NEUROLOGIC: Alert and oriented. Cranial nerves II through XII grossly intact. ASSESSMENT: 1. 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 -Encourage patient to increase activity level. Continue to work with PT OT -Encourage patient to use incentive spirometer -Continue pain management. Resume IV Tylenol for pain -Continue IV fluids -Continue antibiotics -DVT prophylaxis subcu heparin and GI prophylaxis Pepcid Objective - Vital Signs Vital signs: Vital Signs Temp 97.8 F 08/27/23 07:52 Pulse 78 08/27/23 07:52 Resp 16 08/27/23 07:52 BP 127/65 08/27/23 07:52 Pulse Ox 91 L 08/27/23 08:28 FiO2 Intake & Output 08/26/23 08/27/23 08/27/23 18:59 06:59 18:59 Intake Total 1960 Balance 1960 Weight 54.885 kg Intake: Intake, IV Titration 1900 Amount ACETAMINOPHEN IV (For NPO 200 ) 1,000 mg In Empty Bag 1 bag @ 400 mls/hr IVPB Q6HR [facility] Rx#:[id number] D5-0.45% NaCl with KCl 1500 20Meq/l 1,000 ml @ 125 mls/hr IV .Q8H [facility] Rx#: [id number] Piperacillin-Tazobactam 3 200 .375 gm In Sodium Chloride 0.9% 100 ml @ 25 mls/hr IVPB Q8H [facility] Rx#: [id number] Oral 60 Other: Voiding Method Bedside Commode Bedside Commode # Voids 1 1 - Labs CBC & Chem 7: 08/27/23 07:04 08/26/23 08:15 Labs: Abnormal Lab Results - Last 24 Hours (Table) 08/27/23 Range/Units 07:04 WBC 12.51 H (4.50-10.00) X 10*3/uL RBC 3.27 L (4.10-5.20) X 10*6/uL Hgb 10.1 L (12.0-15.0) g/dL Hct 30.8 L (37.2-46.3) % MPV 9.2 L (9.5-12.2) FL Immature Gran # 0.37 H (0.00-0.04) X 10*3/uL Neutrophils # 9.86 H (1.80-7.70) X 10*3/uL Eosinophils # 0.37 H (0.04-0.35) X 10*3/uL Microbiology - Last 24 Hours (Table) 08/23/23 17:22 Anaerobic Culture - Final Other - Other Anaerobic Gram Positive Cocci
--- NOTE | 2023-08-27 16:05 | P.PN ---
Subjective Progress Note Date: 08/27/23 Subjective: Pt denies passing gas, no BM. Hypoxia has improved with use of incentive spirometer as well as ambulation. Denies fevers, chills. 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 Hyponatremia, likely hypovolemic, resolved Hypertension Continue amlodipine 10 mg daily, losartan 25 twice daily Dyslipidemia Continue atorvastatin 10 Hypothyroidism 75 levothyroxine Depression Continue desvenlafaxine Thank you for allowing us to participate in the care of this pleasant patient. Do not hesitate to contact us with questions. Someone can be reached from the [facility] [place] hospitalist group all hours of the day at [phone] or via perfect serve. Objective - Vital Signs Vital signs: Vital Signs Temp 97.7 F 08/27/23 14:41 Pulse 77 08/27/23 14:41 Resp 16 08/27/23 14:41 BP 110/64 08/27/23 14:41 Pulse Ox 98 08/27/23 14:41 FiO2 Intake & Output 08/26/23 08/27/23 08/27/23 18:59 06:59 18:59 Intake Total 1959 Balance 1960 Weight 54.885 kg Intake: Intake, IV Titration 1900 Amount ACETAMINOPHEN IV (For NPO 200 ) 1,000 mg In Empty Bag 1 bag @ 400 mls/hr IVPB Q6HR [facility] Rx#:[id number] D5-0.45% NaCl with KCl 1500 20Meq/l 1,000 ml @ 125 mls/hr IV .Q8H [facility] Rx#: [id number] Piperacillin-Tazobactam 3 200 .375 gm In Sodium Chloride 0.9% 100 ml @ 25 mls/hr IVPB Q8H [facility] Rx#: [id number] Oral 60 Other: Voiding Method Bedside Commode Bedside Commode # Voids 1 1 - Labs CBC & Chem 7: 08/27/23 07:04 08/26/23 08:15 Labs: Abnormal Lab Results - Last 24 Hours (Table) 08/27/23 Range/Units 07:04 WBC 12.51 H (4.50-10.00) X 10*3/uL RBC 3.27 L (4.10-5.20) X 10*6/uL Hgb 10.1 L (12.0-15.0) g/dL Hct 30.8 L (37.2-46.3) % MPV 9.2 L (9.5-12.2) FL Immature Gran # 0.37 H (0.00-0.04) X 10*3/uL Neutrophils # 9.86 H (1.80-7.70) X 10*3/uL Eosinophils # 0.37 H (0.04-0.35) X 10*3/uL Microbiology - Last 24 Hours (Table) 08/23/23 17:22 Anaerobic Culture - Final Other - Other Anaerobic Gram Positive Cocci
[2023-08-28 07:52] LABS: African American GFR (CKD) >90 (>60 ml/min/1.73 sqM); Anion Gap 6 mmol/L; Blood Urea Nitrogen 7 mg/dL (7-17); Calcium 7.8 mg/dL (8.4-10.2); Carbon Dioxide 20 mmol/L (22-30); Chloride 108 mmol/L (98-107); Glucose 124 mg/dL (74-99); Magnesium 1.8 mg/dL (1.6-2.3); Non-African American GFR(CKD) 88 (>60 ml/min/1.73 sqM); Potassium 3.8 mmol/L (3.5-5.1); Sodium 134 mmol/L (137-145)
[2023-08-28 08:20] LABS: Basophils # (A) 0.1 k/uL (0-0.2); Basophils % (A) 1 %; Eosinophils # (A) 0.4 k/uL (0-0.7); Eosinophils % (A) 3 %; HCT 32.8 % (34.0-46.0); HGB 10.7 gm/dL (11.4-16.0); Hypochromasia Slight; Lymphocytes # (A) 1.2 k/uL (1.0-4.8); Lymphocytes % (A) 9 %; MCH 31.7 pg (25.0-35.0); MCHC 32.6 g/dL (31.0-37.0); MCV 97.4 fL (80.0-100.0); Mean Platelet Volume 8.2; Monocytes # (A) 0.7 k/uL (0-1.0); Monocytes % (A) 5 %; Neutrophils # (A) 10.8 k/uL (1.3-7.7); Neutrophils % (A) 80 %; Platelet Count 293 k/uL (150-450); RBC 3.37 m/uL (3.80-5.40); RDW 14.2 % (11.5-15.5); WBC 13.5 k/uL (3.8-10.6)
[2023-08-28] MEDS: DOCUSATE 100 MG CAP PO SCH (09:13)
--- NOTE | 2023-08-28 12:52 | P.PN ---
Subjective Progress Note Date: 08/28/23 Subjective: Patient has had multiple bowel movements, liquidy. She feels less bloated. 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 Hyponatremia, likely hypovolemic, resolved Hypertension Continue amlodipine 10 mg daily, losartan 25 twice daily Dyslipidemia Continue atorvastatin 10 Hypothyroidism 75 levothyroxine Depression Continue desvenlafaxine Thank you for allowing us to participate in the care of this pleasant patient. Do not hesitate to contact us with questions. Someone can be reached from the [facility] hospitalist group all hours of the day at [phone] or via perfect serve. Objective - Vital Signs Vital signs: Vital Signs Temp 98.0 F 08/28/23 07:35 Pulse 82 08/28/23 07:35 Resp 18 08/28/23 07:35 BP 124/64 08/28/23 07:35 Pulse Ox 92 L 08/28/23 08:35 FiO2 Intake & Output 08/27/23 08/28/23 08/28/23 18:59 06:59 18:59 Intake Total 1700 Balance 1700 Intake: Intake, IV Titration 1700 Amount D5-0.45% NaCl with KCl 1500 20Meq/l 1,000 ml @ 125 mls/hr IV .Q8H [facility] Rx#: [id number] Piperacillin-Tazobactam 3 200 .375 gm In Sodium Chloride 0.9% 100 ml @ 25 mls/hr IVPB Q8H [facility] Rx#: [id number] Other: Voiding Method Bedside Commode # Voids 2 1 # Bowel Movements 2 1 - Labs CBC & Chem 7: 08/28/23 06:52 08/28/23 06:52 Labs: Abnormal Lab Results - Last 24 Hours (Table) 08/28/23 08/28/23 Range/Units 06:52 06:52 WBC 13.5 H (3.8-10.6) k/uL RBC 3.37 L (3.80-5.40) m/uL Hgb 10.7 L (11.4-16.0) gm/dL Hct 32.8 L (34.0-46.0) % Neutrophils # 10.8 H (1.3-7.7) k/uL Sodium 134 L (137-145) mmol/L Chloride 108 H (98-107) mmol/L Carbon Dioxide 20 L (22-30) mmol/L Creatinine 0.48 L (0.52-1.04) mg/dL Glucose 124 H (74-99) mg/dL Calcium 7.8 L (8.4-10.2) mg/dL Microbiology - Last 24 Hours (Table) 08/22/23 19:27 Blood Culture - Final Blood 08/22/23 19:42 Blood Culture - Final Blood
--- NOTE | 2023-08-28 15:46 | P.PN ---
Subjective Progress Note Date: 08/28/23 CHIEF COMPLAINT: Perforated jejunal diverticulitis with abscess HISTORY OF PRESENT ILLNESS: The patient is a 88-year-old female status post exploratory laparotomy for perforated jejunal diverticulitis. Patient had function function yesterday and improved today. She is passing moderate flatus and having moderate loose stools. Daughter is at bedside. Reports improved abdominal pain. Will do clear liquids. Scheduled Gas-X. Ambulation encouraged. ROS: No reports of nausea and vomiting. No recent bowel movements. No fevers or chills. No new chest pain. No productive sputum PHYSICAL EXAM: VITAL SIGNS: Reviewed CONSTITUTIONAL: Well developed and in no acute distress. EYES: Conjuctivae without sclera icterus. Extraocular movements grossly intact. HEAD, EARS, NOSE, THROAT: Moist buccal mucosa. Head is atraumatic, normocephalic. Hears conversational speech. No nasal drainage. RESPIRATORY: Non-labored respirations and equal bilateral excursions. CARDIOVASCULAR: Palpable 2+ radial pulses. ABDOMEN: Dressing intact. Mild distention. MUSCULOSKELETAL: No gross deformity of the lower extremities noted. No clubbing. No cyanosis. SKIN: Good skin turgor. Well perfused. NEUROLOGIC: Cranial nerves II through XII grossly intact. No focal or lateralizing signs. PSYCH: Appropriate affect. Alert and oriented to person, place and time. CLINICAL LABS: Reviewed. ASSESSMENT: 1. Perforated jejunal diverticulitis with abscess 2. Ileus PLAN: 1. Will star clear liquids. 2. Scheduled Gas-X. 3. Ambulation encouraged. Objective - Vital Signs Vital signs: Vital Signs Temp 98.4 F 08/28/23 14:13 Pulse 80 08/28/23 14:13 Resp 16 08/28/23 14:13 BP 119/59 08/28/23 14:13 Pulse Ox 96 08/28/23 14:13 FiO2 Intake & Output 08/27/23 08/28/23 08/28/23 18:59 06:59 18:59 Intake Total 1700 Balance 1700 Intake: Intake, IV Titration 1700 Amount D5-0.45% NaCl with KCl 1500 20Meq/l 1,000 ml @ 125 mls/hr IV .Q8H [facility] Rx#: [id number] Piperacillin-Tazobactam 3 200 .375 gm In Sodium Chloride 0.9% 100 ml @ 25 mls/hr IVPB Q8H [facility] Rx#: [id number] Other: Voiding Method Bedside Commode # Voids 2 1 # Bowel Movements 2 1 - Labs CBC & Chem 7: 09/05/23 04:36 09/05/23 04:36 Labs: Abnormal Lab Results - Last 24 Hours (Table) 08/28/23 08/28/23 Range/Units 06:52 06:52 WBC 13.5 H (3.8-10.6) k/uL RBC 3.37 L (3.80-5.40) m/uL Hgb 10.7 L (11.4-16.0) gm/dL Hct 32.8 L (34.0-46.0) % Neutrophils # 10.8 H (1.3-7.7) k/uL Sodium 134 L (137-145) mmol/L Chloride 108 H (98-107) mmol/L Carbon Dioxide 20 L (22-30) mmol/L Creatinine 0.48 L (0.52-1.04) mg/dL Glucose 124 H (74-99) mg/dL Calcium 7.8 L (8.4-10.2) mg/dL Microbiology - Last 24 Hours (Table) 08/22/23 19:27 Blood Culture - Final Blood 08/22/23 19:42 Blood Culture - Final Blood
[2023-08-28] MEDS: SIMETHICONE 40 MG/0.6 ML DROPS 2,000 MG/30 ML BOTTLE PO SCH (18:04)
--- NOTE | 2023-08-29 11:16 | P.PN ---
Subjective Progress Note Date: 08/29/23 Subjective: Patient has had multiple bowel movements, liquidy. She feels less bloated. Still has no/minimal appetite. She is advanced to clear liquid diet yesterday and tolerating this despite minimal appetite. 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 Hyponatremia, likely hypovolemic, resolved Hypertension Continue amlodipine 10 mg daily, losartan 25 twice daily Dyslipidemia Continue atorvastatin 10 Hypothyroidism 75 levothyroxine Depression Continue desvenlafaxine Thank you for allowing us to participate in the care of this pleasant patient. Do not hesitate to contact us with questions. Someone can be reached from the [facility] hospitalist group all hours of the day at [phone] or via perfect serve. Objective - Vital Signs Vital signs: Vital Signs Temp 97.5 F L 08/29/23 07:13 Pulse 83 08/29/23 07:13 Resp 16 08/29/23 07:13 BP 128/66 08/29/23 07:13 Pulse Ox 96 08/29/23 07:13 FiO2 Intake & Output 08/28/23 08/29/23 08/29/23 18:59 06:59 18:59 Other: Voiding Method Bedside Commode # Voids 1 3 # Bowel Movements 1 - Labs CBC & Chem 7: 08/28/23 06:52 08/28/23 06:52
--- NOTE | 2023-08-29 16:27 | P.PN ---
Subjective Progress Note Date: 08/29/23 CHIEF COMPLAINT: Mesenteric abscess HISTORY OF PRESENT ILLNESS: Patient postop day #6 status post exploratory laparotomy with small bowel resection. Patient sitting at bedside chair. Patient reports her pain is controlled. She is having bowel movements. Denies any nausea or vomiting. Tolerating clear liquids. Afebrile. WBC 13.5 slightly up yesterday PHYSICAL EXAM: VITAL SIGNS: Reviewed. GENERAL: Well-developed in no acute distress. ABDOMEN: Soft. Mildly distended. Incision sites minimal drainage distally. Minimal tenderness with palpation NEUROLOGIC: Alert and oriented. Cranial nerves II through XII grossly intact. ASSESSMENT: 1. 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 -Decrease IV fluids to 50ml/hr -DVT prophylaxis subcu heparin and GI prophylaxis Pepcid Physician Wrapper Selector note has been reviewed by physician. Signing provider agrees with the documented findings, assessment, and plan of care. I have personally seen and examined the patient, reviewed the LOCOMOTIVE OBSERVER /PAs history, exam and MDM and agree with the assessment and plan as written. Based on total visit time, I have performed more than 50% of the visit. As above: Patient states she is feeling better than when I saw her on Tuesday. Tolerating clear liquids. Says she had a large volume of flatus and some diarrhea today. She was ambulating in the hallways. Denies nausea currently. Small amount of drainage inferiorly along the incision. Abdominal x-ray was performed because of the slowly increasing white blood cell count and no pneumoperitoneum was seen. Continue clears for today. Continue antibiotics. Monitor incision site. Will follow. Objective - Vital Signs Vital signs: Vital Signs Temp 98.1 F 08/29/23 12:33 Pulse 83 08/29/23 12:33 Resp 16 08/29/23 12:33 BP 118/64 08/29/23 12:33 Pulse Ox 90 L 08/29/23 12:33 FiO2 Intake & Output 08/28/23 08/29/23 08/29/23 18:59 06:59 18:59 Weight 54.885 kg Other: Voiding Method Bedside Commode # Voids 1 3 # Bowel Movements 1 - Labs CBC & Chem 7: 08/28/23 06:52 08/28/23 06:52
--- NOTE | 2023-08-29 17:20 | XR ---
EXAMINATION TYPE: XR abdomen complete w decub DATE OF EXAM: 08/29/2023 COMPARISON: NONE HISTORY: Abdominal distention and pain TECHNIQUE: Supine, upright, and left side down lateral decubitus views of the abdomen are obtained. FINDINGS: There is contrast within the colon from a prior CT of the abdomen and pelvis dated 08/22/2023. There are skin manasa in the mid abdomen indicating recent abdominal surgery. There are mildly dilated air and fluid-filled loops of small bowel with differential air-fluid levels suggestive of at least a partial small bowel obstruction. There is no free intraperitoneal air. There are bilateral lower lobe infiltrates consistent with atelectasis and/or pneumonia. No suspicious abdominal or pelvic calcifications are seen. The osseous structures are grossly intact. IMPRESSION: 1. Partial small bowel obstruction. 2. Bibasilar lung infiltrates. 3. No free intraperitoneal air.
[2023-08-30 11:15] LABS: HCT 29.4 % (37.2-46.3); HGB 9.7 g/dL (12.0-15.0); MCH 30.7 pg (27.0-32.0); Mean Platelet Volume 9.2 FL (9.5-12.2); NRBC Per 100 WBC 0 X 10*3/uL (0.00-0.01); Platelet Count 381 X 10*3/uL (140-440); RBC 3.16 X 10*6/uL (4.10-5.20); RDW 14.5 % (11.5-14.5); WBC 10.62 X 10*3/uL (4.50-10.00)
[2023-08-30 11:33] LABS: BUN/Creat Ratio <7.00 Ratio (12.00-20.00); Blood Urea Nitrogen <3.5 mg/dL (9.0-27.0); Calcium 7.8 mg/dL (8.7-10.3); Carbon Dioxide 23.8 mmol/L (21.6-31.8); Chloride 105 mmol/L (96-109); Glucose 115 mg/dL (70-110); Potassium 3.4 mmol/L (3.5-5.5); Sodium 138 mmol/L (135-145)
[2023-08-30 12:34] LABS: Basophils # (M) 0 X 10*3/uL (0.00-0.10); Eosinophils # (M) 0 X 10*3/uL (0.04-0.35); Lymphocytes # (M) 1.27 X 10*3/uL (0.90-5.00); Macrocytosis (M) 2+; Metamyelocytes % 3 % (0-0); Monocytes # (M) 0.53 X 10*3/uL (0.20-1.00); Neutrophils % (M) 80 %
--- NOTE | 2023-08-30 14:43 | P.PN ---
Subjective Progress Note Date: 08/30/23 Subjective: Patient seen and examined at bedside. No acute events overnight. Having bowel movements. Gen: In NAD, non-toxic HEENT: normocephalic, atraumatic, hearing acuity is intant, mucous membranes moist CVS: perfusing all extremities well, no pitting edema, Respiratory: symmetric chest expansion, no accessory muscle use, GI: soft, NTTP, ND, : no suprapubic tenderness, no CVA tenderness MSK/Derm: no rashes, cyanosis Neuro: CN II-XII intact, no motor weakness, Psych: cooperative, euthymic mood, judgment and insight is intact Data reviewed: WBC 10.62, hemoglobin 9.7, potassium 3.4, creatinine 0.5 Microbiology showed wound cultures growing Klebsiella pneumonia as well as anaerobic gram-positive cocci 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 Hyponatremia, likely hypovolemic, resolved Hypokalemia - 40 oral K Hypertension Continue amlodipine 10 mg daily, losartan 25 twice daily Dyslipidemia Continue atorvastatin 10 Hypothyroidism 75 levothyroxine Depression Continue desvenlafaxine Thank you for allowing us to participate in the care of this pleasant patient. Do not hesitate to contact us with questions. Someone can be reached from the [facility] hospitalist group all hours of the day at [phone] or via perfect serve. Objective - Vital Signs Vital signs: Vital Signs Temp 97.8 F 08/30/23 12:46 Pulse 73 08/30/23 12:46 Resp 16 08/30/23 12:46 BP 121/65 08/30/23 12:46 Pulse Ox 98 08/30/23 12:46 FiO2 Intake & Output 08/29/23 08/30/23 08/30/23 18:59 06:59 18:59 Intake Total 800 Balance 800 Weight 54.885 kg Intake: Intake, IV Titration 800 Amount D5-0.45% NaCl with KCl 600 20Meq/l 1,000 ml @ 50 mls /hr IV .Q20H [facility] Rx#: [id number] Piperacillin-Tazobactam 3 200 .375 gm In Sodium Chloride 0.9% 100 ml @ 25 mls/hr IVPB Q8H [facility] Rx#: [id number] Other: Voiding Method Bedside Commode Bedside Commode # Voids 1 # Bowel Movements 1 - Labs CBC & Chem 7: 08/30/23 06:25 08/30/23 06:25 Labs: Abnormal Lab Results - Last 24 Hours (Table) 08/30/23 08/30/23 Range/Units 06:25 06:25 WBC 10.62 H (4.50-10.00) X 10*3/uL RBC 3.16 L (4.10-5.20) X 10*6/uL Hgb 9.7 L (12.0-15.0) g/dL Hct 29.4 L (37.2-46.3) % MPV 9.2 L (9.5-12.2) FL Eosinophils # (Manual) 0 L (0.04-0.35) X 10*3/uL Macrocytosis (manual) 2+ A Potassium 3.4 L (3.5-5.5) mmol/L BUN <3.5 L (9.0-27.0) mg/dL Creatinine 0.5 L (0.6-1.5) mg/dL BUN/Creatinine Ratio <7.00 L (12.00-20.00) Ratio Glucose 115 H (70-110) mg/dL Calcium 7.8 L (8.7-10.3) mg/dL Microbiology - Last 24 Hours (Table) 08/23/23 17:22 Gram Stain - Final Other - Other Wound Culture - Final Klebsiella pneumoniae
[2023-08-30] MEDS: POTASSIUM CHLORIDE ER 20 MEQ TAB.ER PO STA (15:52)
--- NOTE | 2023-08-30 16:19 | P.PN ---
Subjective Progress Note Date: 08/30/23 CHIEF COMPLAINT: Mesenteric abscess HISTORY OF PRESENT ILLNESS: Patient postop day #7 status post exploratory laparotomy with small bowel resection. Patient sitting at bedside chair. Patient had a little very large diarrhea stool. She reports her pain is controlled. She denies any nausea or vomiting. She is having flatus. Afebrile. WBC is down from 13-10.6 potassium 3.4 receiving supplement. Ab dominal x-ray partial small bowel obstruction. No free air. Bowel movement occurred after x-ray PHYSICAL EXAM: VITAL SIGNS: Reviewed. GENERAL: Well-developed in no acute distress. ABDOMEN: Abdomen softer. Less distended. No drainage from the incision site noted. NEUROLOGIC: Alert and oriented. Cranial nerves II through XII grossly intact. ASSESSMENT: 1. 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 Hypokalemia PLAN: -Advance diet to full liquids -Discontinue IV fluids -Continue to increase activity level -Encourage patient to use incentive spirometer -Continue pain management -Continue antibiotics -Repeat labs in a.m. -DVT prophylaxis subcu heparin and GI prophylaxis Pepcid Physician Consultant Rn note has been reviewed by physician. Signing provider agrees with the documented findings, assessment, and plan of care. I have personally seen and examined the patient, reviewed the FEATHER DRYING MACHINE OPERATOR /PAs history, exam and MDM and agree with the assessment and plan as written. Based on total visit time, I have performed more than 50% of the visit. As above: Patient had a large amount of diarrhea today. Patient is more hungry today. She feels a little bit less bloated. On exam she is still mildly distended. We have decided to advance to full liquids. She will sparingly try the full liquid diet. Continue ambulating. Monitor for symptoms of nausea or increasing distention. Objective - Vital Signs Vital signs: Vital Signs Temp 97.8 F 08/30/23 12:46 Pulse 73 08/30/23 12:46 Resp 16 08/30/23 12:46 BP 121/65 08/30/23 12:46 Pulse Ox 98 08/30/23 12:46 FiO2 Intake & Output 08/29/23 08/30/23 08/30/23 18:59 06:59 18:59 Intake Total 800 Balance 800 Weight 54.885 kg Intake: Intake, IV Titration 800 Amount D5-0.45% NaCl with KCl 600 20Meq/l 1,000 ml @ 50 mls /hr IV .Q20H [facility] Rx#: [id number] Piperacillin-Tazobactam 3 200 .375 gm In Sodium Chloride 0.9% 100 ml @ 25 mls/hr IVPB Q8H [facility] Rx#: [id number] Other: Voiding Method Bedside Commode Bedside Commode # Voids 1 # Bowel Movements 1 - Labs CBC & Chem 7: 08/30/23 06:25 08/30/23 06:25 Labs: Abnormal Lab Results - Last 24 Hours (Table) 08/30/23 08/30/23 Range/Units 06:25 06:25 WBC 10.62 H (4.50-10.00) X 10*3/uL RBC 3.16 L (4.10-5.20) X 10*6/uL Hgb 9.7 L (12.0-15.0) g/dL Hct 29.4 L (37.2-46.3) % MPV 9.2 L (9.5-12.2) FL Eosinophils # (Manual) 0 L (0.04-0.35) X 10*3/uL Macrocytosis (manual) 2+ A Potassium 3.4 L (3.5-5.5) mmol/L BUN <3.5 L (9.0-27.0) mg/dL Creatinine 0.5 L (0.6-1.5) mg/dL BUN/Creatinine Ratio <7.00 L (12.00-20.00) Ratio Glucose 115 H (70-110) mg/dL Calcium 7.8 L (8.7-10.3) mg/dL Microbiology - Last 24 Hours (Table) 08/23/23 17:22 Gram Stain - Final Other - Other Wound Culture - Final Klebsiella pneumoniae
[2023-08-31 11:27] LABS: HCT 33.4 % (37.2-46.3); HGB 11.1 g/dL (12.0-15.0); MCHC 33.2 g/dL (32.0-37.0); MCV 93.3 FL (80.0-97.0); Mean Platelet Volume 9.3 FL (9.5-12.2); NRBC Per 100 WBC 0 X 10*3/uL (0.00-0.01); Platelet Count 456 X 10*3/uL (140-440); RBC 3.58 X 10*6/uL (4.10-5.20); RDW 14.6 % (11.5-14.5); WBC 10.86 X 10*3/uL (4.50-10.00)
[2023-08-31 11:44] LABS: BUN/Creat Ratio <5.83 Ratio (12.00-20.00); Blood Urea Nitrogen <3.5 mg/dL (9.0-27.0); Calcium 8.2 mg/dL (8.7-10.3); Carbon Dioxide 23.7 mmol/L (21.6-31.8); Chloride 104 mmol/L (96-109); Glucose 102 mg/dL (70-110); Potassium 3.7 mmol/L (3.5-5.5); Sodium 138 mmol/L (135-145)
--- NOTE | 2023-08-31 12:12 | P.PN ---
Subjective Progress Note Date: 08/31/23 Subjective: Patient seen and examined at bedside. No acute events overnight. Having bowel movements. He will have some bloating Gen: In NAD, non-toxic HEENT: normocephalic, atraumatic, hearing acuity is intant, mucous membranes moist CVS: perfusing all extremities well, no pitting edema, Respiratory: symmetric chest expansion, no accessory muscle use, GI: soft, NTTP, slightly distended : no suprapubic tenderness, no CVA tenderness MSK/Derm: no rashes, cyanosis Neuro: CN II-XII intact, no motor weakness, Psych: cooperative, euthymic mood, judgment and insight is intact Data reviewed: WBC 10. 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 Status post ex lap and small bowel resection Partial bowel obstruction/ileus Abdominal pain secondary to above, resolving Leukocytosis, resolved Surgery following On full liquid diet Continue IV Zosyn 3.375 g every 8 hours Pain control with IV Dilaudid and IV morphine as needed, monitor for sedation -Simethicone 40 4 times daily Zofran as needed - protonix 40 IV daily Continue to monitor CBC and BMP - Subcu heparin for DVT prophylaxis Acute Hypoxemic Respiratory Failure, resolved - Encouranged IS Hyponatremia, likely hypovolemic, resolved Hypokalemia, resolved Hypertension Continue amlodipine 10 mg daily, losartan 25 twice daily Dyslipidemia Continue atorvastatin 10 Hypothyroidism 75 levothyroxine Depression Continue desvenlafaxine Thank you for allowing us to participate in the care of this pleasant patient. Do not hesitate to contact us with questions. Someone can be reached from the [facility] hospitalist group all hours of the day at [phone] or via [email or web address]. Objective - Vital Signs Vital signs: Vital Signs Temp 98.4 F 08/31/23 07:32 Pulse 80 08/31/23 08:00 Resp 16 08/31/23 07:32 BP 125/65 08/31/23 07:32 Pulse Ox 94 L 08/31/23 07:32 FiO2 Intake & Output 08/30/23 08/31/23 08/31/23 18:59 06:59 18:59 Intake Total 120 Balance 120 Intake: Oral 120 Other: Voiding Method Bedside Commode Bedside Commode Bedside Commode # Voids 1 1 # Bowel Movements 1 1 1 - Labs CBC & Chem 7: 08/31/23 06:54 08/31/23 06:54 Labs: Abnormal Lab Results - Last 24 Hours (Table) 08/30/23 08/31/23 08/31/23 Range/Units 06:25 06:54 06:54 WBC 10.86 H (4.50-10.00) X 10*3/uL RBC 3.58 L (4.10-5.20) X 10*6/uL Hgb 11.1 L (12.0-15.0) g/dL Hct 33.4 L (37.2-46.3) % RDW 14.6 H (11.5-14.5) % Plt Count 456 H (140-440) X 10*3/uL MPV 9.3 L (9.5-12.2) FL Neutrophils # (Manual) 8.50 H (1.80-7.70) X 10*3/uL Eosinophils # (Manual) 0 L (0.04-0.35) X 10*3/uL Macrocytosis (manual) 2+ A BUN <3.5 L (9.0-27.0) mg/dL BUN/Creatinine Ratio <5.83 L (12.00-20.00) Ratio Calcium 8.2 L (8.7-10.3) mg/dL Microbiology - Last 24 Hours (Table) 08/23/23 17:22 Gram Stain - Final Other - Other Wound Culture - Final Klebsiella pneumoniae
[2023-08-31 12:44] LABS: Basophils # (M) 0 X 10*3/uL (0.00-0.10); Eosinophils # (M) 0 X 10*3/uL (0.04-0.35); Lymphocytes # (M) 0.98 X 10*3/uL (0.90-5.00); Monocytes # (M) 0.43 X 10*3/uL (0.20-1.00); Myelocytes % 2 % (0-0); Neutrophils # (M) 9.23 X 10*3/uL (1.80-7.70); Neutrophils % (M) 85 %; RBC Morphology Normal (Normal)
--- NOTE | 2023-08-31 12:57 | P.PN ---
Subjective Progress Note Date: 08/31/23 CHIEF COMPLAINT: Mesenteric abscess HISTORY OF PRESENT ILLNESS: Patient postop day #8 status post exploratory laparotomy with small bowel resection. Patient sitting in bed. She is having bowel movements and flatus. Denies any nausea or vomiting. She is tolerating the full liquids. She does feel bloated and has abdominal discomfort. Afebrile. WBC 10.86 Hgb 11.1 platelets 456. Potassium up at 3.7 PHYSICAL EXAM: VITAL SIGNS: Reviewed. GENERAL: Well-developed in no acute distress. ABDOMEN: Mildly distended. Mild tenderness with palpation. drainage at the upper incision with mild erythema no drainage from the incision site noted. NEUROLOGIC: Alert and oriented. Cranial nerves II through XII grossly intact. ASSESSMENT: 1. 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 Hypokalemia improved PLAN: -Recommend repeating CT scan abdomen pelvis if patient does not have improvement in her abdominal pain or pain is staying at the same level -Continue full liquids -Continue to increase activity level -Encourage patient to use incentive spirometer -Continue pain management -Continue antibiotics -DVT prophylaxis subcu heparin and GI prophylaxis Pepcid Physician Spark Tester note has been reviewed by physician. Signing provider agrees with the documented findings, assessment, and plan of care. Objective - Vital Signs Vital signs: Vital Signs Temp 98.4 F 08/31/23 07:32 Pulse 80 08/31/23 08:00 Resp 16 08/31/23 07:32 BP 125/65 08/31/23 07:32 Pulse Ox 94 L 08/31/23 07:32 FiO2 Intake & Output 08/30/23 08/31/23 08/31/23 18:59 06:59 18:59 Intake Total 120 Balance 120 Intake: Oral 120 Other: Voiding Method Bedside Commode Bedside Commode Bedside Commode # Voids 1 1 # Bowel Movements 1 1 1 - Labs CBC & Chem 7: 08/31/23 06:54 08/31/23 06:54 Labs: Abnormal Lab Results - Last 24 Hours (Table) 08/30/23 08/31/23 08/31/23 Range/Units 06:25 06:54 06:54 WBC 10.86 H (4.50-10.00) X 10*3/uL RBC 3.58 L (4.10-5.20) X 10*6/uL Hgb 11.1 L (12.0-15.0) g/dL Hct 33.4 L (37.2-46.3) % RDW 14.6 H (11.5-14.5) % Plt Count 456 H (140-440) X 10*3/uL MPV 9.3 L (9.5-12.2) FL Neutrophils # (Manual) 8.50 H (1.80-7.70) X 10*3/uL Eosinophils # (Manual) 0 L (0.04-0.35) X 10*3/uL BUN <3.5 L (9.0-27.0) mg/dL BUN/Creatinine Ratio <5.83 L (12.00-20.00) Ratio Calcium 8.2 L (8.7-10.3) mg/dL Microbiology - Last 24 Hours (Table) 08/23/23 17:22 Gram Stain - Final Other - Other Wound Culture - Final Klebsiella pneumoniae
[2023-09-01 11:12] LABS: HCT 33.8 % (37.2-46.3); HGB 11.2 g/dL (12.0-15.0); MCH 31.3 pg (27.0-32.0); MCHC 33.1 g/dL (32.0-37.0); MCV 94.4 FL (80.0-97.0); Mean Platelet Volume 9.3 FL (9.5-12.2); NRBC Per 100 WBC 0 X 10*3/uL (0.00-0.01); Platelet Count 498 X 10*3/uL (140-440); RBC 3.58 X 10*6/uL (4.10-5.20); RDW 14.8 % (11.5-14.5); WBC 13.13 X 10*3/uL (4.50-10.00)
[2023-09-01 11:31] LABS: BUN/Creat Ratio <5.83 Ratio (12.00-20.00); Blood Urea Nitrogen <3.5 mg/dL (9.0-27.0); Calcium 8.3 mg/dL (8.7-10.3); Chloride 103 mmol/L (96-109); Glucose 99 mg/dL (70-110); Potassium 3.8 mmol/L (3.5-5.5); Sodium 137 mmol/L (135-145)
[2023-09-01 11:51] LABS: Basophils # (M) 0 X 10*3/uL (0.00-0.10); Eosinophils # (M) 0 X 10*3/uL (0.04-0.35); Lymphocytes # (M) 1.84 X 10*3/uL (0.90-5.00); Metamyelocytes % 3 % (0-0); Monocytes # (M) 0.53 X 10*3/uL (0.20-1.00); Myelocytes % 2 % (0-0); Neutrophils # (M) 10.11 X 10*3/uL (1.80-7.70); Neutrophils % (M) 77 %
[2023-09-01] MEDS: IOPAMIDOL CONTRAST (ORAL USE) VIAL PO PRN (12:40)
--- NOTE | 2023-09-01 14:16 | P.PN ---
Subjective Progress Note Date: 09/01/23 Subjective: Patient seen and examined at bedside. No acute events overnight. Having bowel movements. He will have some bloating Gen: In NAD, non-toxic HEENT: normocephalic, atraumatic, hearing acuity is intant, mucous membranes moist CVS: perfusing all extremities well, no pitting edema, Respiratory: symmetric chest expansion, no accessory muscle use, GI: soft, NTTP, slightly distended : no suprapubic tenderness, no CVA tenderness MSK/Derm: no rashes, cyanosis Neuro: CN II-XII intact, no motor weakness, Psych: cooperative, euthymic mood, judgment and insight is intact Data reviewed: WBC 13.13, hemoglobin 11.2, platelet 499, potassium 3.8, magnesium 2, creatinine 0.6 Microbiology showed wound cultures growing Klebsiella pneumonia as well as anaerobic gram-positive cocci 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 Status post ex lap and small bowel resection Partial bowel obstruction/ileus Abdominal pain secondary to above, resolving Leukocytosis, resolved Surgery note reviewed, CT abdomen pelvis ordered On full liquid diet Continue IV Zosyn 3.375 g every 8 hours Pain control with IV Dilaudid and IV morphine as needed, monitor for sedation -Simethicone 40 4 times daily Zofran as needed - protonix 40 IV daily Continue to monitor CBC and BMP - Subcu heparin for DVT prophylaxis Acute Hypoxemic Respiratory Failure, resolved - Encouranged IS Hyponatremia, likely hypovolemic, resolved Hypokalemia, resolved Hypertension Continue amlodipine 10 mg daily, losartan 25 twice daily Dyslipidemia Continue atorvastatin 10 Hypothyroidism 75 levothyroxine Depression Continue desvenlafaxine Thank you for allowing us to participate in the care of this pleasant patient. Do not hesitate to contact us with questions. Someone can be reached from the [facility] hospitalist group all hours of the day at [phone] or via [employer]. Objective - Vital Signs Vital signs: Vital Signs Temp 98.1 F 09/01/23 13:34 Pulse 77 09/01/23 13:34 Resp 17 09/01/23 13:34 BP 132/71 09/01/23 13:34 Pulse Ox 99 09/01/23 13:34 FiO2 Intake & Output 08/31/23 09/01/23 09/01/23 18:59 06:59 18:59 Weight 54.885 kg Other: Voiding Method Bedside Commode Bedside Commode Bedside Commode # Bowel Movements 1 - Labs CBC & Chem 7: 09/01/23 06:45 09/01/23 06:45 Labs: Abnormal Lab Results - Last 24 Hours (Table) 08/31/23 09/01/23 09/01/23 Range/Units 06:54 06:45 06:45 WBC 13.13 H (4.50-10.00) X 10*3/uL RBC 3.58 L (4.10-5.20) X 10*6/uL Hgb 11.2 L (12.0-15.0) g/dL Hct 33.8 L (37.2-46.3) % RDW 14.8 H (11.5-14.5) % Plt Count 498 H (140-440) X 10*3/uL MPV 9.3 L (9.5-12.2) FL Neutrophils # (Manual) 9.23 H (1.80-7.70) X 10*3/uL Eosinophils # (Manual) 0 L (0.04-0.35) X 10*3/uL BUN <3.5 L (9.0-27.0) mg/dL BUN/Creatinine Ratio <5.83 L (12.00-20.00) Ratio Calcium 8.3 L (8.7-10.3) mg/dL
--- NOTE | 2023-09-01 15:14 | P.PN ---
Subjective Progress Note Date: 09/01/23 CHIEF COMPLAINT: Mesenteric abscess HISTORY OF PRESENT ILLNESS: Patient postop day #9 status post exploratory laparotomy with small bowel resection. Patient sitting in bed. She is having bowel movements and flatus. She does report abdominal pains. Denies any nausea or vomiting. She does have some drainage from the midline incision. Afebrile. WBC is up from 10.86-13.13 PHYSICAL EXAM: VITAL SIGNS: Reviewed. GENERAL: Well-developed in no acute distress. ABDOMEN: Mildly distended. Mild tenderness with palpation. drainage at the upper incision with mild erythema no drainage from the incision site noted. NEUROLOGIC: Alert and oriented. Cranial nerves II through XII grossly intact. ASSESSMENT: 1. 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 Hypokalemia improved PLAN: -CT scan abdomen pelvis with contrast ordered due to patient's abdominal distention, pain and leukocytosis -Further recommendations forthcoming per surgeon -Will have nursing staff clean incision site -Continue full liquids -Continue to increase activity level -Encourage patient to use incentive spirometer -Continue pain management -Continue antibiotics -DVT prophylaxis subcu heparin and GI prophylaxis Pepcid Physician Gold Cutter note has been reviewed by physician. Signing provider agrees with the documented findings, assessment, and plan of care. Objective - Vital Signs Vital signs: Vital Signs Temp 98.1 F 09/01/23 13:34 Pulse 77 09/01/23 13:34 Resp 17 09/01/23 13:34 BP 132/71 09/01/23 13:34 Pulse Ox 99 09/01/23 13:34 FiO2 Intake & Output 08/31/23 09/01/23 09/01/23 18:59 06:59 18:59 Weight 54.885 kg Other: Voiding Method Bedside Commode Bedside Commode Bedside Commode # Bowel Movements 1 - Labs CBC & Chem 7: 09/01/23 06:45 09/01/23 06:45 Labs: Abnormal Lab Results - Last 24 Hours (Table) 08/31/23 09/01/23 09/01/23 Range/Units 06:54 06:45 06:45 WBC 13.13 H (4.50-10.00) X 10*3/uL RBC 3.58 L (4.10-5.20) X 10*6/uL Hgb 11.2 L (12.0-15.0) g/dL Hct 33.8 L (37.2-46.3) % RDW 14.8 H (11.5-14.5) % Plt Count 498 H (140-440) X 10*3/uL MPV 9.3 L (9.5-12.2) FL Neutrophils # (Manual) 9.23 H (1.80-7.70) X 10*3/uL Eosinophils # (Manual) 0 L (0.04-0.35) X 10*3/uL BUN <3.5 L (9.0-27.0) mg/dL BUN/Creatinine Ratio <5.83 L (12.00-20.00) Ratio Calcium 8.3 L (8.7-10.3) mg/dL
--- NOTE | 2023-09-01 15:52 | CT ---
EXAMINATION TYPE: CT abdomen pelvis w con DATE OF EXAM: 09/01/2023 COMPARISON: 08/22/2023 INDICATION: Abdominal pain and distension, recent bowel sx, leukocytosis. DLP: 1189 mGycm, Automated exposure control for dose reduction was used. CONTRAST: 100 mL of Isovue 300. Study performed with Oral Contrast TECHNIQUE: Axial images were obtained from above the diaphragm to the pubic rami in the axial plane a t 5 mm thick sections. Reconstructed images are reviewed on the computer in the coronal plane. FINDINGS: Limited CT sections are obtained the lung bases. Bibasilar atelectasis or consolidations are present . Some minimal pleural effusions are present bilaterally.. CT ABDOMEN: Liver: Normal Spleen: Normal Pancreas: Pancreatic duct appears dilated throughout its visualized course. No obstructing etiology i s radiographically evident. Consider additional workup with ERCP. Adrenal glands: The adrenal glands are normal. Gallbladder: Normal Kidneys: No masses are evident. No hydronephrosis is present. No cysts are present. There is a non obstructing renal stone at the mid right kidney measuring 0.4 cm. Aorta: Vascular calcification is within the aorta. Inferior vena cava: Normal. CT PELVIS: There may be a small amount of free fluid within the pelvis. Surgical clips are along the anterior abdomen from recent surgery. Loops of bowel within the abdomen and pelvis are normal. There are loops of bowel which are incom pletely distended or lack oral contrast limiting their evaluation. Appendix: Not identified. No dilated tubular structure or inflammatory changes evident. Urinary bladder: Normal. Genitourinary structures: Uterus appears normal. In the posterior pelvis there is an area of low dens ity measuring 4.6 x 4.0 cm. In the posterior right area there is a 4.6 x 2.0 cm. These 2 structures a ppear to communicate through a thin channel identified in the coronal plane, series 5 image 62. Corre late for abscess. Given the fluidlike consistency of -3 Hounsfield units and thin curry, other etiol ogies, such as seroma should be considered. Osseous structures: No suspicious lytic or sclerotic lesions. IMPRESSION: 1. Thin-walled bilobed cystlike structure within the pelvis. This has developed from the recent comp arison. Seroma should be considered. Clinical consideration for abscess is recommended. 2. Bibasilar atelectasis or pneumonia with small adjacent pleural effusions. New from comparison. 3. Dilated pancreatic duct. Consider follow-up ERCP with the patient is stable.
[2023-09-02 10:34] LABS: Basophils % (A) 0 %; Eosinophils # (A) 0.2 k/uL (0-0.7); Eosinophils % (A) 2 %; HCT 35.8 % (34.0-46.0); HGB 11.2 gm/dL (11.4-16.0); Lymphocytes % (A) 9 %; MCH 31.1 pg (25.0-35.0); MCHC 31.4 g/dL (31.0-37.0); Mean Platelet Volume 7.2; Monocytes # (A) 0.6 k/uL (0-1.0); Monocytes % (A) 5 %; Neutrophils # (A) 9.1 k/uL (1.3-7.7); Neutrophils % (A) 82 %; Platelet Count 530 k/uL (150-450); RBC 3.61 m/uL (3.80-5.40); RDW 14.5 % (11.5-15.5); WBC 11.1 k/uL (3.8-10.6)
--- NOTE | 2023-09-02 11:39 | P.PN ---
Subjective Progress Note Date: 09/02/23 Subjective: Patient seen and examined at bedside. No acute events overnight. No bowel movement yesterday or today. Has been ambulating with some assistance. Still feels a little bloated. Gen: In NAD, non-toxic HEENT: normocephalic, atraumatic, hearing acuity is intant, mucous membranes moist CVS: perfusing all extremities well, no pitting edema, Respiratory: symmetric chest expansion, no accessory muscle use, GI: soft, NTTP, slightly distended : no suprapubic tenderness, no CVA tenderness MSK/Derm: no rashes, cyanosis Neuro: CN II-XII intact, no motor weakness, Psych: cooperative, euthymic mood, judgment and insight is intact Data reviewed: WBC 11.1, hemoglobin 11.2, platelet 530 Microbiology showed wound cultures growing Klebsiella pneumonia as well as anaerobic gram-positive cocci Abdomen pelvis CT showed thin-walled cyst like structure within the pelvis, possibly seroma, possibly abscess. Patient does have dilated pancreatic duct. 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 Status post ex lap and small bowel resection Partial bowel obstruction/ileus Abdominal pain secondary to above, resolving Leukocytosis, resolving Surgery following On full liquid diet Continue IV Zosyn 3.375 g every 8 hours Pain control with IV Dilaudid and IV morphine as needed, monitor for sedation -Simethicone 40 4 times daily Zofran as needed - protonix 40 IV daily Continue to monitor CBC and BMP - Subcu heparin for DVT prophylaxis Acute Hypoxemic Respiratory Failure, resolved - Encouranged IS Hyponatremia, likely hypovolemic, resolved Hypokalemia, resolved Hypertension Continue amlodipine 10 mg daily, losartan 25 twice daily Dyslipidemia Continue atorvastatin 10 Hypothyroidism 75 levothyroxine Depression Continue desvenlafaxine Thank you for allowing us to participate in the care of this pleasant patient. Do not hesitate to contact us with questions. Someone can be reached from the [facility] hospitalist group all hours of the day at [phone] or via perfect serve. Objective - Vital Signs Vital signs: Vital Signs Temp 97.8 F 09/02/23 08:00 Pulse 75 09/02/23 08:00 Resp 16 09/02/23 08:00 BP 126/68 09/02/23 08:00 Pulse Ox 97 09/02/23 08:00 FiO2 Intake & Output 09/01/23 09/02/23 09/02/23 18:59 06:59 18:59 Intake Total 540 Balance 540 Weight 54.885 kg Intake: Oral 540 Other: Voiding Method Bedside Commode Toilet Toilet Bedside Commode Bedside Commode # Voids 3 - Labs CBC & Chem 7: 09/02/23 10:01 09/01/23 06:45 Labs: Abnormal Lab Results - Last 24 Hours (Table) 09/01/23 09/02/23 Range/Units 06:45 10:01 WBC 11.1 H (3.8-10.6) k/uL RBC 3.61 L (3.80-5.40) m/uL Hgb 11.2 L (11.4-16.0) gm/dL Plt Count 530 H (150-450) k/uL Neutrophils # 9.1 H (1.3-7.7) k/uL Neutrophils # (Manual) 10.11 H (1.80-7.70) X 10*3/uL Eosinophils # (Manual) 0 L (0.04-0.35) X 10*3/uL
--- NOTE | 2023-09-02 13:44 | P.PN ---
Subjective Progress Note Date: 09/02/23 CHIEF COMPLAINT: Mesenteric abscess HISTORY OF PRESENT ILLNESS: Patient postop day #10 status post exploratory laparotomy with small bowel resection. Patient sitting in bed. She is having flatus. Last BM yesterday. Denies any nausea or vomiting. Does report some abdominal discomfort. CT scan abdomen and pelvis reported thin walled bilobed bed cystlike structure within the pelvis. This has developed from recent comparison. Seroma should be considered. Clinical consideration for abscess is recommended. Bibasilar atelectasis or pneumonia with small adjacent pleural effusions. Dilated pancreatic duct consider follow-up ERCP when patient stable. Patient is afebrile. WBC is down from 13.13-11.1 Hgb 11.2 platelets 530 PHYSICAL EXAM: VITAL SIGNS: Reviewed. GENERAL: Well-developed in no acute distress. ABDOMEN: Mildly distended. Mild discomfort with palpation. Minimal drainage at the distal incision. Mild erythema at the proximal aspect of the incision. NEUROLOGIC: Alert and oriented. Cranial nerves II through XII grossly intact. ASSESSMENT: 1. 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 Pelvic fluid collection. Possible seroma versus abscess noted on CT PLAN: -Consult interventional radiology for possible CT-guided drainage of the fluid collection in the pelvis and send fluid for culture -Continue antibiotics -Advance diet to regular -Continue to increase activity level -Encourage patient to use incentive spirometer -Continue pain management -DVT prophylaxis subcu heparin and GI prophylaxis Pepcid Physician Slate Splitter note has been reviewed by physician. Signing provider agrees with the documented findings, assessment, and plan of care. Objective - Vital Signs Vital signs: Vital Signs Temp 97.8 F 09/02/23 08:00 Pulse 75 09/02/23 08:00 Resp 16 09/02/23 08:00 BP 126/68 09/02/23 08:00 Pulse Ox 97 09/02/23 08:00 FiO2 Intake & Output 09/01/23 09/02/23 09/02/23 18:59 06:59 18:59 Intake Total 540 Balance 540 Weight 54.885 kg Intake: Oral 540 Other: Voiding Method Bedside Commode Toilet Toilet Bedside Commode Bedside Commode # Voids 3 - Labs CBC & Chem 7: 09/02/23 10:01 09/01/23 06:45 Labs: Abnormal Lab Results - Last 24 Hours (Table) 09/01/23 09/02/23 Range/Units 06:45 10:01 WBC 11.1 H (3.8-10.6) k/uL RBC 3.61 L (3.80-5.40) m/uL Hgb 11.2 L (11.4-16.0) gm/dL Plt Count 530 H (150-450) k/uL Neutrophils # 9.1 H (1.3-7.7) k/uL Neutrophils # (Manual) 10.11 H (1.80-7.70) X 10*3/uL
[2023-09-02 14:11] LABS: INR 1.1 (<1.2); Prothrombin Time 11.5 sec (10.0-12.5)
[2023-09-02] MEDS: HYDROmorphone 1 MG/ML 1 ML SYRINGE IVP PRN (14:19)
--- NOTE | 2023-09-02 17:00 | CT ---
INDICATION: Patient age:Female; 88 years old; Reason for study: pelvic abscess; [facility]. ATTENDING: Bi Carson D.O. PROCEDURE: Informed consent was obtained. DLP administered was [address] localizer images were taken which showed safest allowable access to the pelvic collection. The patient was prepped, draped in the usual sterile fashion, and locally anesthetized. A catheter was tracked into the fluid within the pelvis with return purulent fluid. Over 0.038 Bentson guidewir e exchange an 8.5 latvian pig tail catheter was placed. Approximately 10 mL of purulent fluid was drained and sent to the lab for analysis. A vacuum drainag e bag was then attached the catheter. There was no blood loss and post-procedure hemostasis was achi eved. The patient tolerated the procedure well without complication. Patient was transferred to the general medical floor in stable condition. IMPRESSION: CT guided placement of a percutaneous pigtail drainage catheter.
[2023-09-03 09:51] LABS: Basophils # (A) 0.02 X 10*3/uL (0.00-0.10); Basophils % (A) 0.2 %; Eosinophils # (A) 0.29 X 10*3/uL (0.04-0.35); Eosinophils % (A) 3.1 %; HCT 29.3 % (37.2-46.3); HGB 9.4 g/dL (12.0-15.0); Lymphocytes # (A) 1.39 X 10*3/uL (0.90-5.00); Lymphocytes % (A) 14.8 %; MCH 30.6 pg (27.0-32.0); MCHC 32.1 g/dL (32.0-37.0); MCV 95.4 FL (80.0-97.0); Mean Platelet Volume 8.9 FL (9.5-12.2); Monocytes # (A) 0.52 X 10*3/uL (0.20-1.00); Monocytes % (A) 5.5 %; NRBC Per 100 WBC 0 X 10*3/uL (0.00-0.01); Neutrophils # (A) 6.98 X 10*3/uL (1.80-7.70); Neutrophils % (A) 74.4 %; Platelet Count 501 X 10*3/uL (140-440); RBC 3.07 X 10*6/uL (4.10-5.20); RDW 14.6 % (11.5-14.5); WBC 9.39 X 10*3/uL (4.50-10.00)
--- NOTE | 2023-09-03 14:30 | P.PN ---
Subjective Progress Note Date: 09/03/23 Subjective: Patient seen and examined at bedside. No acute events overnight. 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 Status post ex lap and small bowel resection Status post guided drainage Partial bowel obstruction/ileus Abdominal pain secondary to above, resolving Leukocytosis, resolving Surgery following Diet advanced to full Continue IV Zosyn 3.375 g every 8 hours Pain control with IV Dilaudid and IV morphine as needed, monitor for sedation -Simethicone 40 4 times daily Zofran as needed - protonix 40 IV daily Continue to monitor CBC and BMP - Subcu heparin for DVT prophylaxis Acute Hypoxemic Respiratory Failure, resolved - Encouranged IS Hyponatremia, likely hypovolemic, resolved Hypokalemia, resolved Hypertension Continue amlodipine 10 mg daily, losartan 25 twice daily Dyslipidemia Continue atorvastatin 10 Hypothyroidism 75 levothyroxine Depression Continue desvenlafaxine Thank you for allowing us to participate in the care of this pleasant patient. Do not hesitate to contact us with questions. Someone can be reached from the [facility] hospitalist group all hours of the day at [phone] or via perfect serve. Objective - Vital Signs Vital signs: Vital Signs Temp 98.7 F 09/03/23 12:20 Pulse 96 09/03/23 12:20 Resp 18 09/03/23 12:20 BP 138/68 09/03/23 12:20 Pulse Ox 96 09/03/23 12:20 FiO2 Intake & Output 09/02/23 09/03/23 09/03/23 18:59 06:59 18:59 Other: Voiding Method Toilet Toilet Bedside Commode Bedside Commode # Voids 2 1 1 # Bowel Movements 1 1 - Labs CBC & Chem 7: 09/03/23 06:51 09/01/23 06:45 Labs: Abnormal Lab Results - Last 24 Hours (Table) 09/03/23 Range/Units 06:51 RBC 3.07 L (4.10-5.20) X 10*6/uL Hgb 9.4 L (12.0-15.0) g/dL Hct 29.3 L (37.2-46.3) % RDW 14.6 H (11.5-14.5) % Plt Count 501 H (140-440) X 10*3/uL MPV 8.9 L (9.5-12.2) FL Immature Gran # 0.19 H (0.00-0.04) X 10*3/uL
--- NOTE | 2023-09-03 14:45 | P.PN ---
Subjective Progress Note Date: 09/03/23 NAEON. No F/C. No SOB or CP. Tolerating diet without N/V. Admits to flatus and BM. Ambulatory and voiding. Objective - Vital Signs Vital signs: Vital Signs Temp 98.7 F 09/03/23 12:20 Pulse 96 09/03/23 12:20 Resp 18 09/03/23 12:20 BP 138/68 09/03/23 12:20 Pulse Ox 96 09/03/23 12:20 FiO2 Intake & Output 09/02/23 09/03/23 09/03/23 18:59 06:59 18:59 Other: Voiding Method Toilet Toilet Bedside Commode Bedside Commode # Voids 2 1 1 # Bowel Movements 1 1 - Exam Gen: AxO, NAD Pulm: non-labored respirations Abd: soft, mildly distended. Minimally tender around incisions. No guarding/rebound/rigidity IR drain: intact producing scan serous fluid Extrem: no edema seen - Labs CBC & Chem 7: 09/03/23 06:51 09/01/23 06:45 Labs: Abnormal Lab Results - Last 24 Hours (Table) 09/03/23 Range/Units 06:51 RBC 3.07 L (4.10-5.20) X 10*6/uL Hgb 9.4 L (12.0-15.0) g/dL Hct 29.3 L (37.2-46.3) % RDW 14.6 H (11.5-14.5) % Plt Count 501 H (140-440) X 10*3/uL MPV 8.9 L (9.5-12.2) FL Immature Gran # 0.19 H (0.00-0.04) X 10*3/uL Assessment and Plan Assessment: ASSESSMENT: 1. 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 Pelvic fluid collection. Possible seroma versus abscess noted on CT Plan: -F/U IR drain cultures -Continue antibiotics -Diet as tolerated -Continue to increase activity level -Encourage patient to use incentive spirometer -Continue pain management -DVT prophylaxis subcu heparin and GI prophylaxis Telly Nicholas MD General Surgery
--- NOTE | 2023-09-04 12:20 | P.PN ---
Subjective Progress Note Date: 09/04/23 Subjective: Patient seen and examined at bedside. No acute events overnight. 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 Status post ex lap and small bowel resection Status post guided drainage Partial bowel obstruction/ileus Abdominal pain secondary to above, resolving Leukocytosis, resolving Surgery following Diet advanced to full Continue IV Zosyn 3.375 g every 8 hours Pain control with IV Dilaudid and IV morphine as needed, monitor for sedation -Simethicone 40 4 times daily Zofran as needed - protonix 40 IV daily Continue to monitor CBC and BMP - Subcu heparin for DVT prophylaxis Acute Hypoxemic Respiratory Failure, resolved - Encouranged IS Hyponatremia, likely hypovolemic, resolved Hypokalemia, resolved Hypertension Continue amlodipine 10 mg daily, losartan 25 twice daily Dyslipidemia Continue atorvastatin 10 Hypothyroidism 75 levothyroxine Depression Continue desvenlafaxine Thank you for allowing us to participate in the care of this pleasant patient. Do not hesitate to contact us with questions. Someone can be reached from the [facility] hospitalist group all hours of the day at [phone] or via perfect serve. Objective - Vital Signs Vital signs: Vital Signs Temp 98.1 F 09/04/23 11:55 Pulse 70 09/04/23 11:55 Resp 18 09/04/23 11:55 BP 130/67 09/04/23 11:55 Pulse Ox 95 09/04/23 11:55 FiO2 Intake & Output 09/03/23 09/04/23 09/04/23 18:59 06:59 18:59 Intake Total 240 Balance 240 Intake: Oral 240 Other: Voiding Method Toilet Toilet Toilet Bedside Commode Bedside Commode Bedside Commode # Voids 1 2 1 # Bowel Movements 1 - Labs CBC & Chem 7: 09/03/23 06:51 09/01/23 06:45 Labs: Microbiology - Last 24 Hours (Table) 09/02/23 16:03 Gram Stain - Preliminary Aspirate Body Fluid Culture - Preliminary
--- NOTE | 2023-09-04 17:31 | P.PN ---
Subjective Progress Note Date: 09/04/23 CHIEF COMPLAINT: Perforated jejunal diverticulitis with abscess HISTORY OF PRESENT ILLNESS: The patient is a 88-year-old female status post exploratory laparotomy over 1 to 2 weeks ago. She had a recent drainage of a seroma of the pelvis. She has been eating solid foods for the last 2 to 3 days. She reports diarrhea however no bowel movement in 2 days. Her daughter is at bedside. ROS: No reports of nausea and vomiting. No recent bowel movements. No fevers or chills. No new chest pain. No productive sputum PHYSICAL EXAM: VITAL SIGNS: Reviewed CONSTITUTIONAL: Well developed and in no acute distress. EYES: Conjuctivae without sclera icterus. Extraocular movements grossly intact. HEAD, EARS, NOSE, THROAT: Moist buccal mucosa. Head is atraumatic, normocephalic. Hears conversational speech. No nasal drainage. RESPIRATORY: Non-labored respirations and equal bilateral excursions. CARDIOVASCULAR: Palpable 2+ radial pulses. ABDOMEN: Mild distention nontender. CT-guided drainage bag from the buttocks clear serous. MUSCULOSKELETAL: No gross deformity of the lower extremities noted. No clubbing. No cyanosis. SKIN: Good skin turgor. Well perfused. NEUROLOGIC: Cranial nerves II through XII grossly intact. No focal or lateralizing signs. PSYCH: Appropriate affect. Alert and oriented to person, place and time. CLINICAL LABS: Reviewed. WBC normal ASSESSMENT: 1. Perforated jejunal diverticulitis with abscess 2. Postoperative seroma status post drainage PLAN: 1. Patient encouraged to ambulate as to decrease risk for ileus 2. Diet as tolerated 3. Await cultures to adjust antibiotics Objective - Vital Signs Vital signs: Vital Signs Temp 98.1 F 09/04/23 11:55 Pulse 70 09/04/23 11:55 Resp 18 09/04/23 11:55 BP 130/67 09/04/23 11:55 Pulse Ox 95 09/04/23 11:55 FiO2 Intake & Output 09/03/23 09/04/23 09/04/23 18:59 06:59 18:59 Intake Total 780 Balance 780 Intake: Oral 780 Other: Voiding Method Toilet Toilet Toilet Bedside Commode Bedside Commode Bedside Commode # Voids 1 2 1 # Bowel Movements 1 - Labs CBC & Chem 7: 09/03/23 06:51 09/01/23 06:45 Labs: Microbiology - Last 24 Hours (Table) 09/02/23 16:03 Gram Stain - Preliminary Aspirate Body Fluid Culture - Preliminary
[2023-09-05 08:47] LABS: Basophils # (A) 0.02 X 10*3/uL (0.00-0.10); Basophils % (A) 0.3 %; Eosinophils # (A) 0.22 X 10*3/uL (0.04-0.35); Eosinophils % (A) 2.9 %; HCT 30.6 % (37.2-46.3); Lymphocytes # (A) 0.99 X 10*3/uL (0.90-5.00); Lymphocytes % (A) 12.9 %; MCH 31.9 pg (27.0-32.0); MCHC 32.7 g/dL (32.0-37.0); MCV 97.8 FL (80.0-97.0); Mean Platelet Volume 9.4 FL (9.5-12.2); Monocytes # (A) 0.45 X 10*3/uL (0.20-1.00); Monocytes % (A) 5.9 %; NRBC Per 100 WBC 0 X 10*3/uL (0.00-0.01); Neutrophils # (A) 5.94 X 10*3/uL (1.80-7.70); Neutrophils % (A) 77.2 %; Platelet Count 509 X 10*3/uL (140-440); RBC 3.13 X 10*6/uL (4.10-5.20); RDW 14.7 % (11.5-14.5); WBC 7.68 X 10*3/uL (4.50-10.00)
[2023-09-05 09:10] LABS: BUN/Creat Ratio 16.57 Ratio (12.00-20.00); Blood Urea Nitrogen 11.6 mg/dL (9.0-27.0); Calcium 8.4 mg/dL (8.7-10.3); Chloride 104 mmol/L (96-109); Glucose 121 mg/dL (70-110); Potassium 3.9 mmol/L (3.5-5.5); Sodium 139 mmol/L (135-145)
--- NOTE | 2023-09-05 10:40 | P.PN ---
Subjective Progress Note Date: 09/05/23 Subjective: Patient seen and examined at bedside. No acute events overnight. No bowel movements, still has some bloating but now able to ambulate with a walker. Passing flatus. Gen: In NAD, non-toxic HEENT: normocephalic, atraumatic, hearing acuity is intant, mucous membranes moist CVS: perfusing all extremities well, no pitting edema Respiratory: symmetric chest expansion, no accessory muscle use, GI: soft, NTTP, slightly distended, pigtail catheter in place, very minimal serous fluid : no suprapubic tenderness, no CVA tenderness MSK/Derm: no rashes, cyanosis Neuro: CN II-XII intact, no motor weakness, Psych: cooperative, euthymic mood, judgment and insight is intact Data reviewed: Hemoglobin 10, platelet 509, potassium 3.9, creatinine 0.7 Microbiology from aspirate does not show any growth in 48 hours 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 At the time of discharge Pain control with IV Dilaudid and IV morphine as needed, monitor for sedation simethicone 40 4 times daily Zofran as needed protonix 40 IV daily - Subcu heparin for DVT prophylaxis Acute Hypoxemic Respiratory Failure, resolved Hyponatremia, likely hypovolemic, resolved Hypokalemia, resolved Hypertension Continue amlodipine 10 mg daily, losartan 25 twice daily Dyslipidemia Continue atorvastatin 10 Hypothyroidism 75 levothyroxine Depression Continue desvenlafaxine Thank you for allowing us to participate in the care of this pleasant patient. Do not hesitate to contact us with questions. Someone can be reached from the [facility] hospitalist group all hours of the day at [phone] or via perfect serve. Objective - Vital Signs Vital signs: Vital Signs Temp 98.8 F 09/05/23 02:25 Pulse 75 09/05/23 02:25 Resp 17 09/05/23 02:25 BP 130/66 09/05/23 02:25 Pulse Ox 93 L 09/05/23 02:25 FiO2 Intake & Output 0309/05/23 09/05/23 18:59 06:59 18:59 Intake Total 780 Balance 780 Intake: Oral 780 Other: Voiding Method Toilet Toilet Bedside Commode Bedside Commode # Voids 1 1 # Bowel Movements 1 - Labs CBC & Chem 7: 09/05/23 04:36 09/05/23 04:36 Labs: Abnormal Lab Results - Last 24 Hours (Table) 09/05/23 09/05/23 Range/Units 04:36 04:36 RBC 3.13 L (4.10-5.20) X 10*6/uL Hgb 10.0 L (12.0-15.0) g/dL Hct 30.6 L (37.2-46.3) % MCV 97.8 H (80.0-97.0) FL RDW 14.7 H (11.5-14.5) % Plt Count 509 H (140-440) X 10*3/uL MPV 9.4 L (9.5-12.2) FL Immature Gran # 0.06 H (0.00-0.04) X 10*3/uL Glucose 121 H (70-110) mg/dL Calcium 8.4 L (8.7-10.3) mg/dL Microbiology - Last 24 Hours (Table) 09/02/23 16:03 Gram Stain - Preliminary Aspirate Body Fluid Culture - Preliminary
[2023-09-05] MEDS ORDERED: ACETAMINOPHEN TAB 325 MG TAB PO PRN (12:49)
--- NOTE | 2023-09-05 12:52 | P.PN ---
Subjective Progress Note Date: 09/05/23 CHIEF COMPLAINT: Mesenteric abscess HISTORY OF PRESENT ILLNESS: Patient postop day #13 status post exploratory laparotomy with small bowel resection. Patient sitting in bed. She is having flatus. Last bowel movement . Her pain is controlled but she does feel bloated. She denies any nausea or vomiting. She is having flatus. She is status post CT guided drainage of seroma. Drainage is mostly serous in color. Culture pending. Afebrile. WBC 7.68 PHYSICAL EXAM: VITAL SIGNS: Reviewed. GENERAL: Well-developed in no acute distress. ABDOMEN: Mildly distended. Mild discomfort with palpation. Minimal drainage at the distal incision. Mild erythema at the proximal aspect of the incision. NEUROLOGIC: Alert and oriented. Cranial nerves II through XII grossly intact. ASSESSMENT: 1. 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 Postoperative seroma status post drainage PLAN: -Continue antibiotics -Continue regular diet -Continue stool softener -Encourage patient to ambulate -Encourage patient to use incentive spirometer -Continue pain management -DVT prophylaxis subcu heparin and GI prophylaxis Pepcid Physician Harness Preparer note has been reviewed by physician. Signing provider agrees with the documented findings, assessment, and plan of care. Objective - Vital Signs Vital signs: Vital Signs Temp 98.8 F 09/05/23 02:25 Pulse 75 09/05/23 02:25 Resp 17 09/05/23 02:25 BP 130/66 09/05/23 02:25 Pulse Ox 93 L 09/05/23 02:25 FiO2 Intake & Output 09/04/23 09/05/23 09/05/23 18:59 06:59 18:59 Intake Total 780 Balance 780 Intake: Oral 780 Other: Voiding Method Toilet Toilet Toilet Bedside Commode Bedside Commode Bedside Commode # Voids 1 1 # Bowel Movements 1 - Labs CBC & Chem 7: 09/05/23 04:36 09/05/23 04:36 Labs: Abnormal Lab Results - Last 24 Hours (Table) 09/05/23 09/05/23 Range/Units 04:36 04:36 RBC 3.13 L (4.10-5.20) X 10*6/uL Hgb 10.0 L (12.0-15.0) g/dL Hct 30.6 L (37.2-46.3) % MCV 97.8 H (80.0-97.0) FL RDW 14.7 H (11.5-14.5) % Plt Count 509 H (140-440) X 10*3/uL MPV 9.4 L (9.5-12.2) FL Immature Gran # 0.06 H (0.00-0.04) X 10*3/uL Glucose 121 H (70-110) mg/dL Calcium 8.4 L (8.7-10.3) mg/dL Microbiology - Last 24 Hours (Table) 09/02/23 16:03 Gram Stain - Preliminary Aspirate Body Fluid Culture - Preliminary
[2023-09-05] MEDS: bisacodyL 10 MG SUPP RECTAL STA (13:30)
[2023-09-06 02:35] VITALS: RESP 16
[2023-09-06] MEDS: FAMOTIDINE 20 MG TAB PO SCH (10:16)
[2023-09-06] MEDS: PANTOPRAZOLE 40 MG TABLET PO SCH (10:16)
--- NOTE | 2023-09-06 12:06 | P.PN ---
Subjective Progress Note Date: 09/06/23 Subjective: Patient seen and examined at bedside. No acute events overnight. Had 2 bowel movements yesterday. 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 (Ciprofloxacin or cefdinir plus Flagyl) Pain control with IV Dilaudid and IV morphine as needed, monitor for sedation simethicone 40 4 times daily Zofran as needed protonix 40 IV daily - Subcu heparin for DVT prophylaxis Acute Hypoxemic Respiratory Failure, resolved Hyponatremia, likely hypovolemic, resolved Hypokalemia, resolved Hypertension Continue amlodipine 10 mg daily, losartan 25 twice daily Dyslipidemia Continue atorvastatin 10 Hypothyroidism 75 levothyroxine Depression Continue desvenlafaxine 50 daily Thank you for allowing us to participate in the care of this pleasant patient. Do not hesitate to contact us with questions. Someone can be reached from the [facility] hospitalist group all hours of the day at [phone] or via [employer]. Objective - Vital Signs Vital signs: Vital Signs Temp 98.4 F 09/06/23 07:25 Pulse 80 09/06/23 08:40 Resp 16 09/06/23 08:40 BP 154/69 09/06/23 07:25 Pulse Ox 95 09/06/23 07:25 FiO2 Intake & Output 09/05/23 09/06/23 09/06/23 18:59 06:59 18:59 Intake Total 118 Balance 118 Weight 54.885 kg Intake: Oral 118 Other: Voiding Method Toilet Toilet Toilet Bedside Commode Bedside Commode Bedside Commode # Voids 1 # Bowel Movements 1 - Labs CBC & Chem 7: 09/05/23 04:36 09/05/23 04:36 Labs: Microbiology - Last 24 Hours (Table) 09/02/23 16:03 Gram Stain - Preliminary Aspirate Body Fluid Culture - Preliminary 09/02/23 15:55 Anaerobic Culture - Preliminary Aspirate Corynebacterium species
--- NOTE | 2023-09-06 14:21 | P.DS ---
Providers Date of admission: 08/22/23 21:40 Expected date of discharge: 09/06/23 Attending physician: Eric Abrams Consults: 08/22/23 21:36 Consult Physician Routine Consulting Provider: Toribio Huynh Consult Reason/Comments: medical Do you want consulting provider notified?: Yes Primary care physician: Arben Hill Hospital Course: Discharge diagnosis 1. 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 Postoperative seroma status post drain placement Hospital course This is a 88-year-old female who presented with complaints of abdominal pain on both the right lower and left lower quadrants x [address] abnormal CT scan completed outpatient. CT scan abdomen and pelvis had reported partial small bowel obstruction secondary to centralized 6 cm developing mesenteric abscess. No pneumoperitoneum. Patient was taken to the OR by Dr. Abrams for exploratory laparotomy with small bowel resection for mesenteric abscess due to a perforated jejunal diverticulum. Patient did develop a postoperative seroma and required interventional radiology to place a drain. Patient's pain is controlled. She is tolerating diet. She is afebrile. She has been up and ambulating. She is having bowel movements. Incision site is clean dry and intact. She is stable for discharge with antibiotics. Please refer to chart for any further details. Physician Edge Inker note has been reviewed by physician. Signing provider agrees with the documented findings, assessment, and plan of care. Patient Condition at Discharge: Stable Plan - Discharge Summary New Discharge Prescriptions: New Simethicone 40 mg/0.6 ml Drops [Mylicon Drops] 40 mg PO QID ml Levofloxacin [Levaquin] 500 mg PO DAILY 10 Days #10 tab Continue Ferrous Sulfate [Iron (65 MG Elemental)] 325 mg PO DAILY Rosuvastatin Calcium 5 mg PO HS Losartan Potassium [Cozaar] 25 mg PO BID Levothyroxine Sodium [Synthroid] 75 mcg PO DAILY Desvenlafaxine Succinate [Pristiq ER] 50 mg PO DAILY amLODIPine [Norvasc] 10 mg PO DAILY #0 tab Vitamin D3(Unknown Dose) 1 tab PO DAILY Magnesium Oxide [Magox 400] 400 mg PO DAILY Calcium 1000mg 2,000 mg PO BID Discharge Medication List Desvenlafaxine Succinate [Pristiq ER] 50 mg PO DAILY 09/27/21 [History] Levothyroxine Sodium [Synthroid] 75 mcg PO DAILY 09/27/21 [History] Losartan Potassium [Cozaar] 25 mg PO BID 09/27/21 [History] amLODIPine [Norvasc] 10 mg PO DAILY #0 tab 10/01/21 [Rx] Calcium 1000mg 2,000 mg PO BID 08/22/23 [History] Ferrous Sulfate [Iron (65 MG Elemental)] 325 mg PO DAILY 08/22/23 [History] Magnesium Oxide [Magox 400] 400 mg PO DAILY 08/22/23 [History] Rosuvastatin Calcium 5 mg PO HS 08/22/23 [History] Vitamin D3(Unknown Dose) 1 tab PO DAILY 08/22/23 [History] Levofloxacin [Levaquin] 500 mg PO DAILY 10 Days #10 tab 09/06/23 [Rx] Simethicone 40 mg/0.6 ml Drops [Mylicon Drops] 40 mg PO QID ml 09/06/23 [Rx] Follow up Appointment(s)/Referral(s): [facility] - 1 Week [facility] [NON-STAFF] - 1 Week [facility], [REFERRING] - 1 Week Arben Hill DO [Primary Care Provider] - 1-2 days Eric Abrams MD [STAFF PHYSICIAN] - 1 Week Activity/Diet/Wound Care/Special Instructions: No lifting over 10 pounds You may shower. No soaking or tub baths for 2 weeks Very light activity until you are reevaluated at your follow up appointment with your surgeon Use Tylenol [id number] as needed for pain Patient to be discharged with drain Discharge Disposition: HOME SELF-CARE
[2023-09-07 08:04] VITALS: BP 153/68; PULSE 80; TEMP 98.3
--- NOTE | 2023-09-07 14:03 | P.PN ---
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 This is my first evaluation of the patient. Patient seen and examined at bedside with family present. She has some abdominal pain which is getting better. She denies any chest pain or shortness of breath. Her appetite is slowly improving. 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 ex lap with small bowel resection - d/w carrol [employer]. They have ordered an additional 10 days of levaquin. Plan is for discharge today. -Patient medically optimized for discharge. Home medication reconciliation reviewed. Patient can continue on her home iron therapy. I discussed with the patient and family to notify surgery if she starts having more frequent bowel movements, abdominal pain, or fevers. (added to discharge tab) Hypertension amlodipine 10 mg daily, losartan 25 twice daily Dyslipidemia -Crestor 5 mg at night Hypothyroidism - levothyroxine 75 mcg Depression desvenlafaxine 50 daily Resolved: Ileus Leukocytosis Normocytic anemia acute hypoxic respiratory failure Hyponatremia Hypokalemia Thank you for allowing us to participate in the care of this pleasant patient. Do not hesitate to contact us with questions. Someone can be reached from the [facility] hospitalist group all hours of the day at [phone] or via [employer]. This dictation was prepared using [employer] voice recognition software. Though every attempt is made to correct errors during dictation some may still exist. Objective - Vital Signs Vital signs: Vital Signs Temp 98.3 F 09/07/23 07:28 Pulse 80 09/07/23 07:45 Resp 16 09/07/23 07:45 BP 153/68 09/07/23 07:28 Pulse Ox 95 09/07/23 07:28 FiO2 Intake & Output 09/06/23 09/07/23 09/07/23 18:59 06:59 18:59 Other: Voiding Method Toilet Toilet Toilet Bedside Commode Bedside Commode Bedside Commode # Voids 1 # Bowel Movements 1 - Labs CBC & Chem 7: 09/05/23 04:36 09/05/23 04:36 Labs: Microbiology - Last 24 Hours (Table) 09/02/23 15:55 Anaerobic Culture - Final Aspirate Corynebacterium species 09/02/23 16:03 Gram Stain - Final Aspirate Body Fluid Culture - Final
== END 2023-09-07 11:36 | disposition home health service (06) | DRG 329 ==
LOC: EC 18:56 → 4SSUR 21:40 → 5NMEDONC 08-23 15:08
PROVIDERS: ADMIT Surgery; ATTEND Surgery
PROC: 3E1038Z Irrigation of Skin and Mucous Membranes using Irrigating Substance, Percutaneous Approach (ICD-10-PCS; 2023-08-23)
PROC: 0DTA0ZZ Resection of Jejunum, Open Approach (ICD-10-PCS; principal; 2023-08-23 16:35)
PROC: 0W9G30Z Drainage of Peritoneal Cavity with Drainage Device, Percutaneous Approach (ICD-10-PCS; 2023-09-02)
DX: K57.00 Diverticulitis of small intestine with perforation and abscess without bleeding (principal); J96.01 Acute respiratory failure with hypoxia; K65.1 Peritoneal abscess; E87.1 Hypo-osmolality and hyponatremia; K56.600 Partial intestinal obstruction, unspecified as to cause; J98.11 Atelectasis; K56.7 Ileus, unspecified; E86.1 Hypovolemia; F32.A Depression, unspecified; I10 Essential (primary) hypertension; D64.9 Anemia, unspecified; B96.1 Klebsiella pneumoniae [K. pneumoniae] as the cause of diseases classified elsewhere; B96.89 Other specified bacterial agents as the cause of diseases classified elsewhere; E78.5 Hyperlipidemia, unspecified; E87.6 Hypokalemia; K86.89 Other specified diseases of pancreas; E03.9 Hypothyroidism, unspecified; Z79.890 Hormone replacement therapy; Z79.899 Other long term (current) drug therapy
CPT/HCPCS: 36415; 71045; 74021; 74177; 75989; 80048; 80053; 81001; 82150; 83605; 83690; 83735; 85025; 85027; 85610; 87040; 87070; 87075; 87077; 87186; 87205; 88307; 94760; 96361; 96365; 96366; 96367; 96375; 99285

== ENCOUNTER → 2023-08-22 | Outpatient (CLI) | payer MEDICARE ==
[2023-08-22 17:17] LABS: African American GFR (CKD) 66 (>60 ml/min/1.73 sqM); Blood Urea Nitrogen 27 mg/dL (7-17); Non-African American GFR(CKD) 58 (>60 ml/min/1.73 sqM)
--- NOTE | 2023-08-22 18:59 | CT ---
EXAMINATION TYPE: CT abdomen pelvis w con DATE OF EXAM: 08/22/2023 HISTORY: abdominal pain CT DLP: 485.8mGycm Automated Exposure Control for Dose Reduction was Utilized. CONTRAST: CT scan of the abdomen and pelvis is performed with IV Contrast, patient injected with 80 m L of Isovue 300. COMPARISON: None FINDINGS: LUNG BASES: No acute process. Moderate cardiomegaly and coronary calcifications noted.2 LIVER/GB: No significant abnormality is appreciated. PANCREAS: No significant abnormality is seen. SPLEEN: No significant abnormality is seen. ADRENALS: No significant abnormality is seen. KIDNEYS: No significant abnormality is seen. BOWEL: There is a centralized 6 cm ill-defined mesenteric fluid/soft tissue CT density mass with mult ifocal subcentimeter gas bubbles within, located just above the level of the sacral promontory. The f inding is consistent with developing abscess. Upstream small bowel loops are mildly dilated up to 4 c m caliber. PERITONEAL CAVITY: There is no pneumoperitoneum. No peritoneal fluid. PELVIC VISCERA: No gross abnormality seen. LYMPH NODES: No greater than 1cm abdominal or pelvic lymph nodes are appreciated. OSSEOUS STRUCTURES: No focal aggressive lesions. OTHER: No acute vascular process. IMPRESSION: Partial small bowel obstruction secondary to centralized 6 cm developing mesenteric abscess; the proc ess is extraperitoneal (mesenteric) as there is no pneumoperitoneum or peritoneal fluid throughout th e abdomen and pelvis.
== END | disposition home or self-care (01) ==
LOC: RADCTMAIN 16:23
PROVIDERS: ATTEND Family Medicine
DX: K56.600 Partial intestinal obstruction, unspecified as to cause (principal); L29.9 Pruritus, unspecified; K65.1 Peritoneal abscess; R11.0 Nausea
CPT/HCPCS: 82565; 84520; 74177; 36415; Q9967

== ENCOUNTER → 2023-10-07 | Outpatient (CLI) | payer MEDICARE ==
--- NOTE | 2023-10-09 08:11 | XR ---
EXAMINATION TYPE: XR lumbosacral spine min 4V DATE OF EXAM: 10/07/2023 CLINICAL HISTORY: 09/22/2021 COMPARISON: NONE TECHNIQUE: Frontal, lateral, and oblique images of the lumbar spine are obtained. FINDINGS: There is a moderate T12 vertebral body compression fracture of uncertain age and/or etiolog y however has occurred since the prior study. No additional fractures seen. Grade 1 anterolisthesis L 4 on L5 measuring 4 mm. Moderate multilevel degenerative disc space narrowing and spondylosis seen. F acet joint arthropathy noted. IMPRESSION: 1. T12 vertebral body compression fracture of uncertain age and/or etiology. 2. Multilevel Degenerative disc disease as discussed.
== END | disposition home or self-care (01) ==
LOC: RADXRYALE 16:07
PROVIDERS: ATTEND Physician Assistant Medical
DX: M51.36 Other intervertebral disc degeneration, lumbar region (principal)
CPT/HCPCS: 72110